=== PATIENT | male | born 1935 | race Caucasian/White ===

== ENCOUNTER 2017-05-27 13:35 | Inpatient (IN) | payer MEDICARE, BC ==
[2017-05-27] VITALS (11 sets, daily range): BP systolic 103–131; BP diastolic 55–84; BMI 25.7
[~2017-05-27 13:35] MED LIST: ALEVE220 MG PO; BAYER CHEWABLE81 MG PO; MIRALAX17 GM PO; OSTEO BI-FLEX1 EAC1 PO; PLAVIX75 MG PO; PRAVACHOL20 MG PO; TENORMIN50 MG PO
[2017-05-27] MEDS ORDERED: HYDROCODON-ACE1 EAC7 PO (14:33)
[2017-05-27] MEDS ORDERED: LEVBID0.375 MG PO (14:35)
[2017-05-27] MEDS ORDERED: TOPROL XL25 MG PO (14:36)
[2017-05-27 16:24] LABS: HEMATOCRIT 50.9 % (42.0-54.0); HEMOGLOBIN 17.1 g/dL (13.5-17.5); MCH 32.1 pg (26.0-34.0); MCHC 33.6 g/dL (31.0-37.0); MCV 95.5 fL (80.0-100.0); MEAN PLATELET VOLUME 10.4 fL (7.4-10.4); RBC 5.33 10x6/uL (4.20-6.10); RDW 13.7 % (11.5-14.5); WBC 14.9 10x3/uL (4.8-10.8)
[2017-05-27 16:38] LABS: INR 1.21 (0.85-1.17); PROTIME 15.1 SECONDS (11.6-15.0)
[2017-05-27 16:43] LABS: APTT 156.5 SECONDS (22.8-39.4)
--- NOTE | 2017-05-27 17:04 | NUR ---
admitted per ambulance from [facility] er. with bilatal pulmonary embolus. heparin gtt infusing at 1000 units an hour. patient awake and alert warm and dry, denies any pain. admits to getting short of breath easier. abd soft with bowel sounds present. monitor sr. states he has no controll of bladder hx of prostate cancer. friendly and talkative. and daughter here. dr. giordano here orders received. 1650 heparin gtt off for 1 hour for PTT of 156 will restart at 700 units an hour
[2017-05-27 17:14] LABS: ANION GAP 15.5 mmol/L (8-16); CALCIUM 9.1 mg/dL (8.5-10.1); CARBON DIOXIDE 25.2 mmol/L (21.0-32.0); CREATININE - SERUM 1.1 mg/dL (0.6-1.3); POTASSIUM - SERUM 5.7 mmol/L (3.5-5.1)
[2017-05-27 17:17] LABS: TROPONIN-I 0.186 ng/mL (0.000-0.060)
--- NOTE | 2017-05-27 18:18 | NUR ---
heparin gtt restarted at 700 units an hour. pull up removed bloody urine noted. patient states that he does that at times. patient does continously dribble urine. no skin breakdown noted. iv patent without redness or swelling. ptt to be done at 2350. ate most of dinner tray
--- NOTE | 2017-05-27 19:30 | NUR ---
REPORT RECVD. CARE ASSUMED. INITIAL ASSMNT COMPLETED. SEE FLOWSHEET FOR ALL FINDINGS. AWAKE AND AOX4. RESP EVEN AND UNLABORED. LUNGS DIM IN BASES. SPO2 96% ON O2 AT 2 LPM NC. SR ON THE MONITOR. PULSES PALP X4. ABD SOFT, BSA X4. OCC INCONTINENCE OF UOP. HEPARIN GTT INFUSING TO PIV NO DIFF. DENIES DISCOMFORT. HOB UP. C/L IN REACH. BED ALARM ON FOR SAFETY. CONT CURRENT POC.
--- NOTE | 2017-05-27 21:00 | NUR ---
HS MEDS GIVEN. FAMILY AT BEDSIDE. UPDATE GIVEN. VSS. DENIES NEEDS. SR ON THE MONITOR. SPO2 96% ON O2 AT 2 LPM NC. HOB UP. BED ALARM ON. CONT CURRENT POC.
--- NOTE | 2017-05-27 23:30 | NUR ---
REASSESSMENT COMPLETED. SEE FLOWSHEET FOR ALL FINDINGS. AWAKE AND AOX4. RESP EVEN AND UNLABORED. LUNGS DIM IN BASES. SPO2 96% ON O2 AT 2 LPM NC. SR ON THE MONITOR. PULSES PALP X4. ABD SOFT, BSA X4. OCC INCONTINENCE OF UOP. HEPARIN GTT INFUSING TO PIV NO DIFF. DENIES DISCOMFORT. HOB UP. C/L IN REACH. BED ALARM ON FOR SAFETY. CONT CURRENT POC.
[2017-05-28] VITALS (25 sets, daily range): BP systolic 100–140; BP diastolic 68–84
--- NOTE | 2017-05-28 01:10 | NUR ---
RESTING WITH NO DISTRESS. RESP UNLABORED. SPO2 96% ON O2 AT 2 LPM NC. DENIES DISCOMFORT. VSS. HOB UP. C/L IN REACH. CONT CURRENT POC.
--- NOTE | 2017-05-28 01:30 | NUR ---
PT IS OOB AND CONFUSED TO WHERE HE IS AT. REORIENTS EASILY. COMPLETE LINEN CHANGE. BRIEFS PUT ON PT. HE STATES THAT HE WEARS THEM AT HOME. URINE IS DARK, BLOODY AND CONCENTRATED. HE ALSO STATES THAT THIS IS NORMAL FOR HIM. PT IS BACK IN BED. BED ALARM ON. SON AT BEDSIDE. PT IS IN SIGHT OF NURSE'S STATION. WILL CONT WITH POC.
--- NOTE | 2017-05-28 05:18 | NUR ---
RESTING WITH NO DISTRESS. VSS. C/O INSOMNIA. C/L IN REACH. BED ALARM ON FOR SAFETY. CONT CURRENT POC.
--- NOTE | 2017-05-28 06:11 | NUR ---
LAB AT BEDSIDE FOR AM LAB. FAMILY AT BEDSIDE. UPDATE GIVEN.
[2017-05-28 06:25] LABS: BASOPHILS 0.3 % (0-2); EOSINOPHILS 1.7 % (0-7); HEMATOCRIT 49.3 % (42.0-54.0); HEMOGLOBIN 16.3 g/dL (13.5-17.5); IMMATURE GRANULOCYTES 0.2 % (0-5); LYMPHOCYTES 16.2 % (15-50); MCH 31.2 pg (26.0-34.0); MCHC 33.1 g/dL (31.0-37.0); MCV 94.4 fL (80.0-100.0); MEAN PLATELET VOLUME 10.5 fL (7.4-10.4); MONOCYTES 12.2 % (2-11); NEUTROPHILS 69.4 % (40-80); PLATELET COUNT 312 10x3/uL (130-400); RBC 5.22 10x6/uL (4.20-6.10); RDW 13.5 % (11.5-14.5); WBC 15.8 10x3/uL (4.8-10.8)
[2017-05-28 06:56] LABS: ANION GAP 15.9 mmol/L (8-16); CALCIUM 9.2 mg/dL (8.5-10.1); CARBON DIOXIDE 24.6 mmol/L (21.0-32.0); CREATININE - SERUM 1.2 mg/dL (0.6-1.3); MAGNESIUM - SERUM 2.2 mg/dL (1.8-2.4); POTASSIUM - SERUM 4.5 mmol/L (3.5-5.1)
--- NOTE | 2017-05-28 14:23 | NUR ---
0700 RECEIVED PT IN BED, AWAKE ALERT NO DISTRESS NOTED, HEPARIN GTT PER PROTOCOL. SEE INITAL ASSESSENT. NO DISTRESS NOTED 1200 PTT CAME BACK GREATER THAN 200, HEPARINF GTT STOPPED AND LAB RE DRAW 1300 LAB RE DRAW 1330 PTT 186.9 WILL FOLLOW HEPARIN GTT PROTOCOL
--- NOTE | 2017-05-28 19:45 | NUR ---
SHIFT ASSESSMENT COMPLETE. PT IS A&O X4 WITH AND SON AT THE BEDSIDE. THEY ARE REQUESTING A REPEAT CT SCAN OF LUNGS. INFORMED THEM THAT I WOULD PASS THAT ON IN REPORT AND TO INFORM THE DOCTOR OF THEIR WISHES WHEN HE ROUNDS WELL. THEY DID NOT HAVE ANY OTHER REQUESTS. RT FOREARM PIV INFUSING HEPARIN. APTT 37.5, GAVE 3000 UN BOLUS AND INCREASED BY 200 UN/HR PER PROTOCOL. S1S2 AUDIBLE, HR 89 BPM NORMAL SINUS RHYTHM. RR SHALLOW, DIMINISHED LUNG SOUNDS THROUGHOUT ALL LOBES. ABD IS FLAT AND SOFT, BS ACTIVE X4. PT IS INCONTINENT OF URINE AND HAS A STEADY DRIBBLE. CLEANED EVANS AREA. SCD'S AT BEDSIDE. RADIAL AND PEDAL PULSES PALP. NO REQUESTS AT THIS TIME. WILL CONT WITH POC.
--- NOTE | 2017-05-28 21:20 | NUR ---
PT'S AT BEDSIDE. NO QUESTIONS AT THIS TIME. SL MEDICATION TAKEN WITH NO ISSUES. NO CHANGES NOTED, VSS. WILL CONT WITH POC.
--- NOTE | 2017-05-28 23:30 | NUR ---
REASSESSMENT COMPLETE AT THIS TIME. PT'S O2 SAT IS 90%. INCREASED OXYGEN TO 3 L/MIN, INCRASED O2 SAT TO 96%. NO FURTHER CHANGES. WILL CONT WITH POC.
[2017-05-29] VITALS (18 sets, daily range): BP systolic 105–153; BP diastolic 45–89
--- NOTE | 2017-05-29 01:30 | NUR ---
PT IS OOB AT AND CONFUSED TO WHERE HE IS. REORIENTS EASILY. COMPLETE LINEN CHANGE. BRIEFS PUT ON PER REQUEST. HE STATES THAT HE WEARS THEM AT HOME. URINE IS DARK, BLOODY AND CONCENTRATED, HE STATES THAT IT IS NORMAL FOR HIM. SON AT BEDSIDE. PT IS BACK IN BED, BED ALARM ON. NO FURTHER CHANGES. WILL CONT TO MONITOR.
[2017-05-29 01:56] LABS: HEMATOCRIT 46.3 % (42.0-54.0); HEMOGLOBIN 15.5 g/dL (13.5-17.5); MCH 31.3 pg (26.0-34.0); MCHC 33.5 g/dL (31.0-37.0); MCV 93.3 fL (80.0-100.0); MEAN PLATELET VOLUME 10.5 fL (7.4-10.4); RBC 4.96 10x6/uL (4.20-6.10); RDW 13.4 % (11.5-14.5); WBC 15.9 10x3/uL (4.8-10.8)
--- NOTE | 2017-05-29 03:30 | NUR ---
REASSESSMENT COMPLETE. PT IS ANXIOUS/WORRIED ABOUT COSTS OF HOSPITAL STAY AND IS BECOMING INCREASINGLY MORE CONFUSED. UNABLE TO REORIENT. PT'S FAMILY AT BEDSIDE TRYING TO COMFORT HIM. THEY DENY ANY REQUESTS AT THIS TIME. BED IN LOWEST POSITION, CALL LIGHT IN REACH, BED ALARM ON. WILL CONT TO MONITOR.
--- NOTE | 2017-05-29 04:27 | NUR ---
PT ANXIOUS/WORRIED AT THIS TIME, CHANCE WISDOM NOTIFIED, NEW ORDERS RECIEVED
[2017-05-29 04:46] LABS: ANION GAP 15.6 mmol/L (8-16); CALCIUM 8.8 mg/dL (8.5-10.1); CARBON DIOXIDE 22.7 mmol/L (21.0-32.0); CREATININE - SERUM 1.2 mg/dL (0.6-1.3); POTASSIUM - SERUM 4.3 mmol/L (3.5-5.1)
--- NOTE | 2017-05-29 05:20 | NUR ---
PT IS RESTING PEACEFULLY AT THIS TIME. VSS. SISTER AT BEDSIDE. WILL CONT WITH POC.
[2017-05-29 08:17] LABS: BASOPHILS 0.3 % (0-2); HEMATOCRIT 44.9 % (42.0-54.0); HEMOGLOBIN 15.4 g/dL (13.5-17.5); IMMATURE GRANULOCYTES 0.3 % (0-5); LYMPHOCYTES 13.9 % (15-50); MCH 32.2 pg (26.0-34.0); MCHC 34.3 g/dL (31.0-37.0); MCV 93.9 fL (80.0-100.0); MEAN PLATELET VOLUME 10.7 fL (7.4-10.4); MONOCYTES 15.5 % (2-11); PLATELET COUNT 317 10x3/uL (130-400); RBC 4.78 10x6/uL (4.20-6.10); RDW 13.4 % (11.5-14.5); WBC 15.6 10x3/uL (4.8-10.8)
--- NOTE | 2017-05-29 09:27 | NUR ---
PATIENT RESTING WELL AWAKES IN CONFUSED STATE RESTLESS WITH HANDS. ALLLOWED TO RETURN TO SLEEP. FAMILY AT BEDSIDE. BILATERAL LUNG SOUNDS CLEAR AND EQUAL, DOES TAKE DEEP BREATHS ON REQUEST. IV RIGHT FOREARM WITHOUT REDNESS OR SWELLING INFUSING WITH HEPARIN AT 800 UNITS AN HOUR. PTT THIS AM 65.8. NO CHANGES NEEDED TO HEAPRIN GTT REPEAT PTT IN AM. DR. MAXWELL HERE. ORDERS RECEIVED. PLAN TO ALLOW PATIENT TO REST MUCH POSSIBLE TO DAY. MONITOR SR. RESP DEEP AND REGULAR.
--- NOTE | 2017-05-29 09:57 | NUR ---
AWAKE AFER EKG, EATING BREAKFAST AT BEDSIDE
--- NOTE | 2017-05-29 11:24 | NUR ---
RESTING WELL. STILL CONFUSED AND PULLING ON GOWN AND LINES WHEN AWAKE. AT BEDSIDE. CALMS DOWN WHEN TALKS TO HIM. ATE GOOD BREAKFAST. 90% OF FOOD. PATIENT STATES HE IS GETTING UP TO EAT. TRAY WARMED AND SERVED.
--- NOTE | 2017-05-29 11:41 | NUR ---
DR. COFFEY HERE TALKED WITH FAMILY QUESTIONS ANSWERED
[2017-05-29 15:07] LABS: APPEARANCE HAZY (CLEAR); BILIRUBIN NEGATIVE (NEGATIVE); COLOR YELLOW (YELLOW); GLUCOSE NEGATIVE (NEGATIVE); KETONE NEGATIVE (NEGATIVE); NITRITE NEGATIVE (NEGATIVE); PROTEIN TRACE mg/dL (NEGATIVE); UROBILINOGEN NORMAL (NORMAL)
[2017-05-29 15:08] LABS: WHITE CELLS - URINE >50 /hpf (0-5)
[2017-05-29 15:09] LABS: BACTERIA FEW /hpf (NONE SEEN)
--- NOTE | 2017-05-29 15:51 | NUR ---
IN AND OUT CATH DONE IN PROPULSION SYSTEMS ENGINEER. PATIENT TOELRATED WELL SPECIMEN OBTAINED AND TAKEN TO LAB. INCONT OF LARGE AMOUNT OF URINE, BATH GIVE LINEN CHANGE. PULL PLACED ON PATIENT. AWAKE AND MORE ALERT. LUNCH TRAY SERVED ATE SMALL AMOUNT. DRINKING COFFEE.
[2017-05-29 15:53] LABS: CKMB 1.4 U/L (0.0-3.6); CREATINE KINASE 111 UL (21-232)
--- NOTE | 2017-05-29 17:24 | NUR ---
REPORT CALLED TO JAMAL, TRANSFER TO ROOM 2216 PER BED. ATE 75% OF DINNER TRAY
[2017-05-29 22:39] LABS: CKMB 1.4 U/L (0.0-3.6); CREATINE KINASE 57 UL (21-232)
[2017-05-29 22:40] LABS: TROPONIN-I 0.114 ng/mL (0.000-0.060)
[2017-05-30] VITALS: BP 129/70
--- NOTE | 2017-05-30 00:49 | NUR ---
PATIENT C/O OF PAINFUL URINATION, URINE OUTPUT AT ABOUT 300 CC WITH A LARGE AMOUNT OF BRIGHT RED BLOOD. I NOTIFIED ROSA GOMEZ AND SHE GAVE ORDERS TO DO A STAT CBC AND CALL HER BACK IF ABNORMAL.
[2017-05-30 00:57] LABS: BASOPHILS 0.4 % (0-2); HEMATOCRIT 45.1 % (42.0-54.0); HEMOGLOBIN 15.2 g/dL (13.5-17.5); IMMATURE GRANULOCYTES 0.4 % (0-5); LYMPHOCYTES 18.6 % (15-50); MCH 32.1 pg (26.0-34.0); MCHC 33.7 g/dL (31.0-37.0); MCV 95.3 fL (80.0-100.0); MEAN PLATELET VOLUME 10.3 fL (7.4-10.4); MONOCYTES 14.4 % (2-11); NEUTROPHILS 62.2 % (40-80); PLATELET COUNT 315 10x3/uL (130-400); RBC 4.73 10x6/uL (4.20-6.10); RDW 13.4 % (11.5-14.5); WBC 13.4 10x3/uL (4.8-10.8)
--- NOTE | 2017-05-30 01:10 | NUR ---
EYES CLOSED RESPIRATIONS WITH EASE AND UNLABORED. SR UP X2 CALL LIGHT WITHIN REACH.
[2017-05-30 01:16] LABS: CKMB 1.2 U/L (0.0-3.6); CREATINE KINASE 62 UL (21-232)
[2017-05-30 01:21] LABS: TROPONIN-I 0.105 ng/mL (0.000-0.060)
[2017-05-30 04:00] VITALS: BP 95/50
[2017-05-30 05:43] LABS: BASOPHILS 0.4 % (0-2); EOSINOPHILS 2.5 % (0-7); HEMATOCRIT 41.3 % (42.0-54.0); HEMOGLOBIN 13.8 g/dL (13.5-17.5); IMMATURE GRANULOCYTES 0.5 % (0-5); LYMPHOCYTES 17.2 % (15-50); MCH 31.4 pg (26.0-34.0); MCHC 33.4 g/dL (31.0-37.0); MCV 94.1 fL (80.0-100.0); MEAN PLATELET VOLUME 10.9 fL (7.4-10.4); MONOCYTES 15.4 % (2-11); PLATELET COUNT 322 10x3/uL (130-400); RBC 4.39 10x6/uL (4.20-6.10); RDW 13.3 % (11.5-14.5); WBC 14.1 10x3/uL (4.8-10.8)
[2017-05-30 05:51] LABS: ANION GAP 13.4 mmol/L (8-16); CALCIUM 8.7 mg/dL (8.5-10.1); CARBON DIOXIDE 24.4 mmol/L (21.0-32.0); CREATININE - SERUM 1.2 mg/dL (0.6-1.3); POTASSIUM - SERUM 3.8 mmol/L (3.5-5.1)
--- NOTE | 2017-05-30 08:11 | NUR ---
AWAKE AND ALERT. ORIENTED X3. LUNGS ARE CLEAR BUT DIMINISHED IN LOWER LOBES. REPORTS NON PRODUCTIVE COUGH. SKIN IS INTACT WITHOUT REDNESS. SL TO LEFT AC IS PATENT WITHOUT REDNESS AT INSERTION SITE. IV TO RIGHT FOREARM IS PATNET WITHOUT REDNESS AT INSERTION SITE. FAMILY AT BEDSIDE. SCD'S OFF AT THIS TIME. DENIES NEEDS.
[2017-05-30 08:30] VITALS: BP 106/62
--- NOTE | 2017-05-30 09:30 | NUR ---
SITTING UP IN BED READING NEWSPAPER. NO C/O. DENIES NEEDS.
[2017-05-30 11:39] VITALS: BP 111/55
[2017-05-30 13:15] LABS: ANA REFLEX - DIRECT Negative (Negative)
[2017-05-30 15:07] VITALS: BP 110/60
--- NOTE | 2017-05-30 16:47 | NUR ---
REQUESTED AND GIVNE ONE HYDROCODONE PO FOR C/O LEFT SHOULDER PAIN LEVEL 7. WILL MONITOR.
--- NOTE | 2017-05-30 17:57 | NUR ---
SITTING UP IN BED EATING SUPPER. NO C/O AT THIS TIME. REPORTS GOOD RELIEF FROM HYDROCODONE. NO CHANGES NOTED.
[2017-05-30 20:00] VITALS: BP 124/68
--- NOTE | 2017-05-30 23:21 | NUR ---
PATIENT IS RESTING WELL IN BED, SPOUSE IS AT BEDSIDE. CALL LIGHT IN REACH.
[2017-05-31] VITALS: BP 147/54
[2017-05-31 04:00] VITALS: BP 128/62
[2017-05-31 05:41] LABS: BASOPHILS 0.4 % (0-2); EOSINOPHILS 5.8 % (0-7); HEMATOCRIT 42.3 % (42.0-54.0); HEMOGLOBIN 14.3 g/dL (13.5-17.5); IMMATURE GRANULOCYTES 0.6 % (0-5); LYMPHOCYTES 17.5 % (15-50); MCH 31.8 pg (26.0-34.0); MCHC 33.8 g/dL (31.0-37.0); MCV 94.2 fL (80.0-100.0); MEAN PLATELET VOLUME 10.4 fL (7.4-10.4); MONOCYTES 14.1 % (2-11); NEUTROPHILS 61.6 % (40-80); PLATELET COUNT 358 10x3/uL (130-400); RBC 4.49 10x6/uL (4.20-6.10); RDW 13.5 % (11.5-14.5); WBC 13.2 10x3/uL (4.8-10.8)
[2017-05-31 06:12] LABS: ANION GAP 13.4 mmol/L (8-16); CALCIUM 8.9 mg/dL (8.5-10.1); CARBON DIOXIDE 25.5 mmol/L (21.0-32.0); CREATININE - SERUM 1.2 mg/dL (0.6-1.3); POTASSIUM - SERUM 3.9 mmol/L (3.5-5.1)
--- NOTE | 2017-05-31 08:06 | NUR ---
AWAKE AND ALERT. ORIENTED X3. NO C/O AT THIS TIME. INCONTINENT OF URINE. SKIN CARE PER STAFF, LINENS CHANGED. REPOSITIONED IN BED FOR COMFORT. LUNGS ARE CLEAR BILATERALLY, NO COUGH NOTED. SKIN IS INTACT WITHOUT REDNESS. SL TO LEFT AC IS PATENT WITHOUT REDNESS, IV TO RIGHT FOREARM IS PATENT WITHOUT REDNESS AT INSERTION SITE. DENIES NEEDS.
[2017-05-31 08:11] VITALS: BP 147/72
--- NOTE | 2017-05-31 10:31 | NUR ---
ATE ALL OF BREAKFAST. FAMILY AT BEDSIDE. DENIES NEEDS.
--- NOTE | 2017-05-31 12:00 | NUR ---
ASSISTED UP TO CHAIR AT BEDSIDE FOR LUNCH. AT BEDSIDE. DENIES NEEDS.
[2017-05-31 12:35] VITALS: BP 138/62
[2017-05-31 13:17] LABS: PROTEIN S - FREE 116 % (57-157); PROTEIN S - FUNCTIONAL 130 % (63-140); PROTEIN S - TOTAL 101 % (60-150)
--- NOTE | 2017-05-31 13:18 | NUR ---
HAD MODERATE BM. SPECIMEN SENT TO LAB. TELEMETRT PLACED ON PATIENT. UP IN CHIAR AT BEDSIDE.
--- NOTE | 2017-05-31 13:46 | NUR ---
Discharge Planning Comments: CM met with patient to assess with discharge planning needs. Patient lives independently with his , where he plans to return home too. His will be the one to drive home at discharge. Patient denies any hh or dme at this time. Patient would like to use HH in [place]. CM will continue to follow and assist with discharge planning needs. PCP: Uziel Bauer Leeanne () [phone] Cabin Equipment Supervisor: Salma Todd
[2017-05-31 17:27] VITALS: BP 148/64
--- NOTE | 2017-05-31 18:39 | NUR ---
RESTING QUIETLY IN BED. ATE MOST OF SUPPER. VERY HAPPY TO HAVE DR. ROSARIO ON HIS CASE, STATED IT MADE HIM COMFORTABLE. NO CHANGES NOTED. DENIES NEEDS.
[2017-05-31 20:00] VITALS: BP 137/63
--- NOTE | 2017-05-31 23:49 | NUR ---
PATIENT IS ALERT, WATCHING TV. SPOUSE AT BEDSIDE, DENIES PAIN OR NEEDS AT THIS TIME. CALL LIGHT IN REACH.
[2017-06-01] VITALS: BP 101/58
[2017-06-01 04:00] VITALS: BP 110/55
[2017-06-01 05:27] LABS: BASOPHILS 0.3 % (0-2); EOSINOPHILS 3.3 % (0-7); HEMATOCRIT 39.6 % (42.0-54.0); HEMOGLOBIN 13.4 g/dL (13.5-17.5); IMMATURE GRANULOCYTES 0.4 % (0-5); LYMPHOCYTES 14.3 % (15-50); MCH 31.7 pg (26.0-34.0); MCHC 33.8 g/dL (31.0-37.0); MCV 93.6 fL (80.0-100.0); MEAN PLATELET VOLUME 9.8 fL (7.4-10.4); MONOCYTES 13.9 % (2-11); NEUTROPHILS 67.8 % (40-80); PLATELET COUNT 397 10x3/uL (130-400); RBC 4.23 10x6/uL (4.20-6.10); RDW 13.5 % (11.5-14.5); WBC 14.6 10x3/uL (4.8-10.8)
[2017-06-01 05:55] LABS: ANION GAP 11.3 mmol/L (8-16); CALCIUM 8.8 mg/dL (8.5-10.1); CARBON DIOXIDE 25.4 mmol/L (21.0-32.0); CREATININE - SERUM 1.3 mg/dL (0.6-1.3); MAGNESIUM - SERUM 2.1 mg/dL (1.8-2.4); POTASSIUM - SERUM 3.7 mmol/L (3.5-5.1)
--- NOTE | 2017-06-01 07:15 | NUR ---
RECIEVED REPORT ON PATIENT, PATIENT IS ALERT AND ORIENTED AT THIS TIME. PATIENT HAS A L FA IV THAT IS SL AT THIS TIME. PATIENT IS SR ON MONITOR WITH A RATE OF 71. PATIENT DENIES ANY NEEDS AT THIS TIME. BED IS LOW AND LOCKED, CALL LIGHT IN REACH. CPOC
[2017-06-01 08:55] VITALS: BP 126/54
--- NOTE | 2017-06-01 09:30 | NUR ---
MORNING MEDICATION GIVEN, ASSESSMENT DONE. DENIES ANY NEEDS. CPOC
[2017-06-01 11:29] VITALS: BP 100/37
--- NOTE | 2017-06-01 12:00 | NUR ---
PATIENT SITTING UP IN BED EATING LUNCH, DENIES ANY NEEDS AT THIS TIME. CPOC
--- NOTE | 2017-06-01 14:30 | NUR ---
PATIENT GETTING IN SHOWER PER VEHICLE BODY BUILDER. CPOC
[2017-06-01 15:34] VITALS: BP 143/69
--- NOTE | 2017-06-01 17:10 | NUR ---
PATIENT IS AMBULATING AROUND ROOM, PATIENT FAMILY CAME TO GET ME STATING THAT PATIENT IS CONFUSED, AND PULLING OFF TELEMETRY. SPOKE WITH PATIENT, TRIED TO REORIENT, PATIENT KEEPS TALKING ABOUT MOTORCYLES AND THEIR PARTS, AND THAT HE NEEDS TO PAY HIS BILL, STATES HE WANTS TO TALK TO WHO IS IN CHARGE, INFORMED PATIENT THAT HE WAS IN THE HOSPITAL, AND TOLD HIM I NEEDED TO PUT HIS MONITOR BACK ON SO I CAN MONITOR HIM, HE STATES UNDERSTANDING, BUT PATIENT STILL KEEPS TALKING ABOUT MOTORCYLCE PARTS AND IS CONFUSED. 0.5MG OF ATIVAN GIVEN IV. WILL MONITOR PATIENT. BED LOW AND LOCKED. CALL LIGHT IN REACH. CPOC
--- NOTE | 2017-06-01 18:21 | NUR ---
PATIENT STILL CONFUSED. RAMBLING WORDS, PATIENT PUT TO BED, BED ALARM ON. WILL CONT TO MONITOR PATIENT. CPOC
--- NOTE | 2017-06-01 19:03 | NUR ---
PT IS UP IN RROM PACING , REFUSED TO STAY IN BED , FIGHTING WITH FAMILY WELL STAFF ABOUT GETTING IN BED, CHECKED EMAR TO SEE IF PT CAN HAVE ANYTHING AND PT WAS JUST GIVEN ATIVAN AT 1700. PAGEJagdish LEE IN REGARDS TO OTHER MEDS THAT MAY WORK
--- NOTE | 2017-06-01 19:21 | NUR ---
PT FAMILY CAME OUT OF ROOM TO SEE IF ANYTHING ELSE CAN BE GIVEN TO PT TO CALM DOWN, EXPLAINED HAD PUT IN A PAGE TO BMET AND JUST WAITING TO HEAR BACK, PT FAMILY WANTED ANOTHER PAGE TO BE PLACED TO ROSA OR DIFFERENT DOCTOR. EXPLAINED THAT PAGE WAS ALREADY DONE AND JUST WAITING BMET BACK
--- NOTE | 2017-06-01 19:30 | NUR ---
RECEIVED CALL BACK FROM TAKE DOWN INSPECTOR. PT ORDERED GEODON FOR AGITATION, WILL ADMINISTER ORDERED DOSE AND CONTINUE TO MONITOR
[2017-06-02] VITALS: BP 103/60
--- NOTE | 2017-06-02 03:30 | NUR ---
PT CONFUSED, RESTLESS AND COMBATIVE. KEEPS TRYING TO CLIMB OUT OF BED. BED ALARM ON. AT BEDSIDE. CONTINUE BRICK KILN WORKER'S PLAN OF CARE.
[2017-06-02 04:00] VITALS: BP 114/69
[2017-06-02 06:08] LABS: BASOPHILS 0.3 % (0-2); EOSINOPHILS 4.2 % (0-7); HEMATOCRIT 41.1 % (42.0-54.0); HEMOGLOBIN 13.8 g/dL (13.5-17.5); IMMATURE GRANULOCYTES 0.3 % (0-5); LYMPHOCYTES 9.1 % (15-50); MCH 31.5 pg (26.0-34.0); MCHC 33.6 g/dL (31.0-37.0); MCV 93.8 fL (80.0-100.0); MEAN PLATELET VOLUME 9.8 fL (7.4-10.4); NEUTROPHILS 74.1 % (40-80); PLATELET COUNT 443 10x3/uL (130-400); RBC 4.38 10x6/uL (4.20-6.10); RDW 13.4 % (11.5-14.5); WBC 15.1 10x3/uL (4.8-10.8)
[2017-06-02 06:34] LABS: ALBUMIN 2.5 g/dL (3.4-5.0); ANION GAP 12.8 mmol/L (8-16); BILIRUBIN - TOTAL 1.11 mg/dL (0.2-1.3); CALCIUM 9.2 mg/dL (8.5-10.1); CREATININE - SERUM 1.4 mg/dL (0.6-1.3); POTASSIUM - SERUM 3.8 mmol/L (3.5-5.1)
--- NOTE | 2017-06-02 07:15 | NUR ---
REPORT RECEIVED FROM BOOK CLEANER NURSE. CALL LIGHT IN REACH.
--- NOTE | 2017-06-02 08:25 | NUR ---
PLEASE CHANGE CXR TO PORTABLE DUE TO THE FACT THE PT IS TOO WEAK TO STAND
--- NOTE | 2017-06-02 09:05 | NUR ---
SON DOES NOT WANT PATIENT TO BE AWAKENED AT THIS TIME.
--- NOTE | 2017-06-02 11:15 | NUR ---
ASSESSMENT COMPLETED. AM MEDS ADMINISTERED. ALARM ON. FAMILY IN ROOM. CALL LIGHT IN REACH. WILL CONTINUE WITH PLAN OF CARE.
[2017-06-02 12:33] VITALS: BP 131/62
--- NOTE | 2017-06-02 13:13 | NUR ---
NUTRITION F/U CHART REVIEWED. SPOKE WITH PORTABLE TRACK LINE MARKER. REPORTS PT FEEDS SELF WITH GOOD PO INTAKE REG DIET. REMAINS ASSESSED AT LOW NUTRITIONAL RISK. RD FOLLOWING
--- NOTE | 2017-06-02 13:55 | NUR ---
AMBULATED IN HALLWAY WITH PT AND RT. O2 WNL.
--- NOTE | 2017-06-02 14:29 | NUR ---
PT AMBULATING ROOM AIR SP02 97%.
--- NOTE | 2017-06-02 14:30 | NUR ---
DENIES ANY NEEDS AT THIS TIME.
--- NOTE | 2017-06-02 15:41 | NUR ---
LEVSIN PO. VOIDED IN URINAL. SPECIMEN SENT TO LAB FOR UA WITH C&S.
[2017-06-02 16:17] VITALS: BP 132/58
[2017-06-02 16:28] LABS: APPEARANCE HAZY (CLEAR); BILIRUBIN NEGATIVE (NEGATIVE); COLOR YELLOW (YELLOW); GLUCOSE NEGATIVE (NEGATIVE); KETONE NEGATIVE (NEGATIVE); NITRITE NEGATIVE (NEGATIVE); PROTEIN TRACE mg/dL (NEGATIVE); UROBILINOGEN NORMAL (NORMAL)
[2017-06-02 16:30] LABS: BACTERIA FEW /hpf (NONE SEEN); RED CELLS - URINE 25-50 /hpf (0-5); WHITE CELLS - URINE 25-50 /hpf (0-5)
--- NOTE | 2017-06-02 17:20 | NUR ---
TALKED TO PATIENT ABOUT IMPORTANCE OF HEART MONITOR. FINALLY ALLOWED ME TO PUT IT BACK ON.
--- NOTE | 2017-06-02 18:56 | NUR ---
NO CHANGES IN INITIAL ASSESSMENT. FAMILY IN ROOM. ALARM ON. CALL LIGHT IN REACH. WILL CONTINUE WITH PLAN OF CARE.
[2017-06-02 20:00] VITALS: BP 119/53
[2017-06-03] VITALS: BP 122/55
[2017-06-03 04:00] VITALS: BP 130/60
[2017-06-03 05:46] LABS: BASOPHILS 0.3 % (0-2); EOSINOPHILS 5.6 % (0-7); HEMATOCRIT 40.2 % (42.0-54.0); HEMOGLOBIN 13.5 g/dL (13.5-17.5); IMMATURE GRANULOCYTES 0.4 % (0-5); LYMPHOCYTES 13.6 % (15-50); MCH 31.5 pg (26.0-34.0); MCHC 33.6 g/dL (31.0-37.0); MCV 93.7 fL (80.0-100.0); MEAN PLATELET VOLUME 9.7 fL (7.4-10.4); MONOCYTES 11.9 % (2-11); NEUTROPHILS 68.2 % (40-80); PLATELET COUNT 488 10x3/uL (130-400); RBC 4.29 10x6/uL (4.20-6.10); RDW 13.2 % (11.5-14.5); WBC 13.8 10x3/uL (4.8-10.8)
[2017-06-03 06:19] LABS: ANION GAP 12.9 mmol/L (8-16); CARBON DIOXIDE 26.1 mmol/L (21.0-32.0); CREATININE - SERUM 1.3 mg/dL (0.6-1.3)
[2017-06-03 07:58] VITALS: BP 136/62
[2017-06-03 08:16] LABS: LUPUS - INTERPRETATION Comment: (()); LUPUS - THROMBIN TIME 15.9 sec (0.0-23.0); LUPUS - dRVVT 76.6 sec (0.0-47.0); PTT-LA 40.3 sec (0.0-51.9)
[2017-06-03] MEDS ORDERED: TESSALON PERLE100 MG PO (12:37)
[2017-06-03] MEDS ORDERED: MUCINEX DM ER1 EAC1 PO (12:37)
[2017-06-03] MEDS ORDERED: FLORAJEN3 CAPS460 MG PO (12:38)
[2017-06-03] MEDS ORDERED: PROTONIX40 MG PO (12:38)
[2017-06-03] MEDS ORDERED: ELIQUIS5 MG PO (12:40)
[2017-06-03] MEDS ORDERED: OMNICEF300 MG PO (12:41)
[2017-06-03 12:43] VITALS: BP 128/61
--- NOTE | 2017-06-03 17:54 | NUR ---
DISCHARGE INSTRUCTIONS WITH PT,STATES UNDERSTANDING.IV DCD WITH CATH INTACT.LEFT UNIT VIA WHEELCHAIR.FAMILY AT SIDE.
--- NOTE | 2017-06-05 11:44 | CN ---
PATIENT NAME:JOSE MONTELONGO MEDICAL RECORD: [id number] : 33 LOCATION:[facility] ADMIT DATE: 05/27/17 ACCOUNT: [id number] CONSULTING PHYSICIAN: LANCE FLETCHER MD REFERRING PHYSICIAN: SHAUNA PHILLIPS MD DATE OF CONSULTATION: 05/27/2017 Pulmonary Consultation CONSULT REQUESTING PHYSICIAN: Shauna Phillips MD REASON FOR CONSULTATION: Bilateral pulmonary embolism, near syncopal episode. HISTORY OF PRESENT ILLNESS: Mr. Montelongo is an 81-year-old gentleman, who this morning has near syncopal episode. He is also having some chest pain. The pain was across his chest. He has shortness of breath. The patient was taken to the [place] ER. He has a CTA and he was diagnosed with bilateral pulmonary embolism. According to the patient, now he is feeling better. He gets shortness of breath with exertion, but he do not feel like passing out. The patient does having history of left DVT in the lower extremity 6 years ago after abdominal surgery. REVIEW OF SYSTEMS: Mainly in the history of present illness. PAST MEDICAL HISTORY: 1. Coronary artery disease. 2. Hypertension. 3. History of myocardial infarction. 4. History of deep venous thrombosis. 5. History of cystitis. 6. Osteoarthritis. PAST SURGICAL HISTORY: 1. He had a cardiac catheterization and stent placement. 2. He has abdominal surgery, laparotomy in 2010. ALLERGIES: There are no known drug allergies. PRESENT MEDICATIONS: [employer] was reviewed. PERSONAL AND SOCIAL HISTORY: The patient is and lives with his . He has very remote history of smoking. He is a nondrinker. FAMILY HISTORY: Noncontributory. PHYSICAL EXAMINATION: GENERAL: Now, the patient is lying comfortably in bed. He is not in acute distress. VITAL SIGNS: The blood pressure is 112/55, pulse is 89, respirations 22, temperature 97.3 and SPO2 is 92% on 2 liter nasal cannula. HEENT: Conjunctivae pink, sclerae nonicteric. NECK: Supple, no JVD. CHEST: Excursion is minimal on both sides. There is no wheeze, no rales. HEART: Rate and rhythm regular. Normal sound. There is a loud P2 component of the second heart sound. ABDOMEN: Soft, bowel sounds present. No hepatosplenomegaly. CONSULT REPORT [id number] JOSE MONTELONGO RECTAL: Deferred. EXTREMITIES: No cyanosis, no clubbing. 1+ pedal edema on the left side. There is no erythema, no calf tenderness. CENTRAL NERVOUS SYSTEM: The patient is awake and alert. There are no obvious cranial nerve abnormality. The gait was not tested. LABORATORY DATA: D-dimer was 3220. The troponin level was 0.2, BUN is 28, creatinine 1.2. Sodium is 143, potassium 4.7. Liver enzymes within normal range. DIAGNOSTIC DATA: The CTA verbal report, bilateral pulmonary embolism. IMPRESSION: 1. Acute hypoxic respiratory failure secondary to #2. 2. Bilateral pulmonary embolism. 3. Near syncopal episode secondary to pulmonary embolism. 4. Dyspnea. 5. Coronary artery disease with elevated cardiac enzymes, troponin 0.2. RECOMMENDATION: 1. We will continue the heparin per protocol. 2. Check the CTA of the chest. Check cardiac echo, check ultrasound of the bilateral lower extremities. Follow up chest x-ray and labs. Continue the home medication. 3. Check factor V Leiden, check PTT, check DEREK, check protein S. The patient is already on heparin. Dr. Phillips, thank you for involving me in the care of Mr. Montelongo. TRANSINT:[id number] Voice Confirmation ID: [id number] DOCUMENT ID: [id number] LANCE FLETCHER MD at 1144 CC: SHAUNA PHILLIPS MD [id number] DICTATION DATE: 05/27/17 1546 ENDBAND CUTTER HAND: 05/27/[id number] DIS IN 06/03/17 [id number] [place] [address]
[2017-06-05 18:10] LABS: FACTOR II DNA ANALYSIS Negative (())
== END 2017-06-03 17:55 | disposition home health service (06) | DRG 175 ==
LOC: D.OPS 13:35 → D.ICU 13:36 → D.MS 13:36
PROVIDERS: Family Medicine; Internal Medicine Cardiovascular Disease; Internal Medicine Hematology & Oncology; Internal Medicine Pulmonary Disease; ADMIT Family Medicine
DX: I26.99 Other pulmonary embolism without acute cor pulmonale (principal); J96.01 Acute respiratory failure with hypoxia; G93.41 Metabolic encephalopathy; I24.8 Other forms of acute ischemic heart disease; I50.22 Chronic systolic (congestive) heart failure; I42.9 Cardiomyopathy, unspecified; J98.11 Atelectasis; R55 Syncope and collapse; Z86.718 Personal history of other venous thrombosis and embolism; Z79.01 Long term (current) use of anticoagulants; I25.2 Old myocardial infarction; I08.3 Combined rheumatic disorders of mitral, aortic and tricuspid valves; I27.20 Pulmonary hypertension, unspecified

== ENCOUNTER 2017-06-14 11:12 | Inpatient (IN) | payer MEDICARE, BC ==
[2017-06-14] VITALS (12 sets, daily range): BP systolic 111–141; BP diastolic 47–92; BMI 28.2
--- NOTE | ~2017-06-14 | HEMODYNAMI ---
PATIENT:JOSE LESTER MEDICAL RECORD: [id number] : 33 [id number] ADMISSION DATE: 06/14/17 Generatedon:06/16/20179:30 Patient name: JOSE LESTER Patient #: [id number] : 1935 Date of study: 06/16/2017 Page: Of Hemodynamic Procedure Report Patient Data Patient Demographics Procedure consent was obtained First Name: JOSE Gender: Male Last Name: TAYLER : 1935 Middle Initial: A Age: 81 year(s) Patient #: [id number] Race: SSN: [id number] Additional ID: [id number] Contact details Address: [address] [place] [address] State: [place] City: [place] Zip code: [address] Past Medical History Allergies: No known allergies Admission Admission Data Admission Date: 06/14/2017 Admission Time: 13:08 Arrival Date: 06/14/2017 Arrival Time: 13:08 Admit Source: Other Insurance Payor: Medicare Room #: D.2121 Weight (lbs.): 150 Weight (kg.): 68.04 Lab Results Lab Result Date: 06/16/2017 Lab Result Time: 0:00 Biochemistry Name Units Result Min Max BUN mg/dl 23 --(----)-* 7 18 Creatinine mg/dl 1.4 --(----)*- 0.6 1.3 CBC Name Units Result Min Max Hemoglobin g/dl 12.1 *-(----)-- 13.5 17.5 Procedure Procedure Types Cath Procedure PCI Procedure Coronary Stent Initial Miscellaneous Procedures Moderate Sedation up to 30 minutes Procedure Description Procedure Date Procedure Date: 06/16/2017 Procedure Start Time: 9:19 Procedure End Time: 9:30 Procedure Staff Name Function Donal Isaacs MD Performing Physician Jim Nassar RN Nurse Maryellen Galvan RT Scrub Jolanta Reynolds RT Monitor Procedure Data Cath Procedure Fluoroscopy Diagnostic fluoroscopy Total fluoroscopy Time: 2.2 time: 2.2 min min Diagnostic fluoroscopy Total fluoroscopy dose: 238 dose: 238 mGy mGy Contrast Material Contrast Material Type Amount (ml) Isovue 300 48 Entry Location Entry Primary Successful Side Size Upsize Upsize Entry Closure Succes sful Closure Location (Fr) 1 (Fr) 2 (Fr) Remarks Device Remarks Femoral Left 6 Fr Exoseal artery Short Estimated blood loss: 5 ml Procedure Complications No complications Procedure Medications Medication Administration Route Dosage 0.9% NaCl I.V. 100 ml/hr Heparin Flush Bag added to field 2 bags (1000units/500ml NS) Lidocaine 2% added to field 20 Heparin Bolus I.V. 4000 units Hemodynamics Rest HGB: 12.1 (g/dl) Heart Rate: 74 (bpm) Snapshots Pre Cath Intra NCS Post Cath Vital Signs Time Heart Resp SPO2 etCO2 NIBP Rhythm Pain Sedation Rate (ipm) (%) (mmHg) (mmHg) Status Level (bpm) 9:04:09 74 16 94 0 121/58(94) NSR 0 (11) 9(A) , No pain 9:08:47 71 22 99 0 121/56(99) NSR 0 (11) 9(A) , No pain 9:13:26 68 19 97 0 112/56(88) NSR 0 (11) 9(A) , No pain 9:18:03 68 19 99 0 119/54(90) NSR 0 (11) 9(A) , No pain 9:22:41 70 16 96 0 121/59(77) NSR 0 (11) 9(A) , No pain 9:27:20 70 17 99 0 130/57(99) NSR 0 (11) 9(A) , No pain Medications Time Medication Route Dose Verified Delivered Reason Notes Effectiveness by by 9:02:24 0.9% NaCl I.V. 100 Jim Jim Per physician ml/hr Maday Nassar RN RN 9:02:49 Heparin Flush added 2 Jim Jim used for Bag to bags Maday Nassar procedure (1000units/500ml field DARYL RN NS) 9:03:13 Lidocaine 2% added 20ml Jim Jim for local to vial Maday Nassar anesthetic field DARYL RN 9:23:04 Heparin Bolus I.V. 4000 Jim Jim for units Maday Nassar anticoagulation RN wedding day coordinator Log Time Note 8:43:11 Informed consent obtained and on chart 8:43:16 Diagnostic Cath Status : Elective 8:43:47 Lab Result : Creatinine 1.4 mg/dl 8:43:47 Lab Result : BUN 23 mg/dl 8:43:47 Lab Result : Hemoglobin 12.1 g/dl 8:43:52 Jim Nassar RN sent for patient. Start room use. 8:43:53 Time tracking: Regular hours 8:43:58 Plan of Care:Hemodynamics will remain stable., Cardiac rhythm will remain stable., Comfort level will be maintained., Respiratory function will remain adequate., Patient/ family verbilizes understanding of procedure., Procedure tolerated without complication., Recovers from procedure without complications.. 9:02:24 0.9% NaCl 100 ml/hr I.V. was administered by Jim Nassar RN; Per physician; 9:02:49 Heparin Flush Bag (1000units/500ml NS) 2 bags added to field was administered by Jim Nassar RN; used for procedure; 9:03:13 Lidocaine 2% 20ml vial added to field was administered by Jim Nassar RN; for local anesthetic; 9:03:17 Vital chart was started 9:04:20 Warm blankets applied, and carlos manuel hugger turned on for patient comfort. 9:04:21 Correct patient and procedure confirmed by team. 9:04:21 ECG and BP/O2 sat monitors applied to patient. 9:04:23 Baseline sample Acquired. 9:04:25 Full Disclosure recording started 9:04:29 H&P Date Dictated: 06/16/2017 Within 30 days and on chart.. 9:04:31 Pre-procedure instructions explained to patient. 9:04:31 Pre-op teaching completed and patient verbalized understanding. 9:04:33 Family in waiting room. 9:04:34 Patient NPO since Midnight. 9:04:50 Is the patient allergic to Iodine/contrast media? No. 9:04:52 Was the patient premedicated? No 9:04:53 Is patient on blood thinner?Yes 9:04:56 ACC The patient was administered the following blood thiners within the last 24 hours: ACCPlavix 9:05:27 Patient diabetic? No. 9:07:53 Previous problem with sedation/anesthesia? No ? 9:07:55 Snore? Yes 9:07:56 Sleep apnea? No 9:07:58 Deviated septum? No 9:07:59 Opens mouth fully? Yes 9:08:00 Sticks out tongue? Yes 9:08:02 Airway obstruction? No ? 9:08:06 Dentures? No ? 9:08:16 Pre procedure: right dorsailis pedis pulse 1+ Palpable, but thready & weak; easily obliterated 9:08:19 Pre procedure: left dorsailis pedis pulse 1+ Palpable, but thready & weak; easily obliterated 9:08:22 Patient pain scale 0/10 ?. 9:08:29 IV patent on arrival in right antecubital with 0.9% NaCl at O. 9:09:14 Lab results completed and on chart. 9:09:18 Right groin area was prepped with chlora-prep and draped in sterile fashion 9::18 Alarms reviewed by R. N. 9::19 Sharps counted by scrub and verified by R.N. 9:09:19 Physician arrived 9:09:20 --------ALL STOP TIME OUT------ 9:09:21 Final Timeout: patient, procedure, and site verified with staff and physician. All members of the team are in agreement. 9:: Right groin site verified by team. 9:09:26 Physical assessment completed. ASA score P 2 - A patient with mild systemic disease as per Donal Isaacs MD. 9:09:29 Sedation plan: IV Moderate Sedation Versed, Fentanyl 9:11:41 Use device set Femoral PCI 9:11:42 Acist Syringe opened to sterile field. 9:11:43 Acist Hand Control opened to sterile field. 9:11:43 Bag Decanter opened to sterile field. 9:11:43 Medline Cath Pack opened to sterile field. 9:11:44 Terumo 6Fr [place] Sheath opened to sterile field. 9:11:44 St Nuno 260cm J .035 wire opened to sterile field. 9:11:45 Merit BasixCompak Inflation Kit opened to sterile field. 9:11:45 Acist Manifold opened to sterile field. 9:11:45 Tegaderm 4 x 4 opened to sterile field. 9:13:09 Patient Weight : 150 lbs 9:13:09 Admit Source: Other 9:13:15 Arrival Date: 06/14/2017 1:08:00 PM 9::22 Insurance Payor : Medicare 9:19:11 Procedure started. 9:19:19 Local anesthetic to left femerol artery with Lidocaine 2% by Donal Isaacs MD.INITIAL ACCESS ONLY 9:19:37 A 6 Fr Short sheath was inserted into the Left Femoral artery 9:20:32 Cordis 6FR XBLAD 3.5 SH guide catheter opened to sterile field. 9:20:43 6 Fr xblad 3.5 guide catheter was inserted over the wire 9:20:48 whisper wire advanced. 9:21:08 Wire advanced across lesion. 9:23:04 Heparin Bolus 4000 units I.V. was administered by Jim Nassar RN; for anticoagulation; 9:25:08 Inflation number: 1 A Euphora 2.0 x 15 Balloon was prepped and advanced across the Mid LAD, then inflated to 13 [place]LAY[place] for 0:10 (min:sec). 9:26:02 Inflation Number: 2 A [place] OTW 2.25 x 18 stent was prepped and advanced across the Mid LAD. The stent was deployed at 15 CLAYTON for 0:10 (min:sec). 9:27:36 Stent catheter was removed intact over wire. 9:27:37 Wire removed. 9:27:37 Guide catheter removed. 9:27:56 Cordis 6Fr Exoseal opened to sterile field. 9:28:09 Sheath removed intact; hemostasis achieved with Exoseal to the Left Femoral artery. 9:28:11 Procedure ended.(Physican Out) 9:28:48 Fluoroscopy time 02.20 minutes. 9:28:53 Fluoroscopy dose: 238 mGy 9:28:53 Flurop Dose total: 238 9:29:07 Contrast amount:Isovue 300 48ml. 9:29:08 Sharps counted by scrub and verified by R.N. 9:29:22 Insertion/operative site no bleeding no hematoma. 9:29:27 Post-op/insertion site Left Femoral artery dressed using a 4 x 4 and Tegaderm. 9:29:31 Post Procedure Pulses reassessed and unchanged 9:29:35 Post procedure rhythm: unchanged. 9:29:38 Estimated blood loss: 5 ml 9:29:39 Post procedure instruction explained to patient.Patient verbalizes understanding. 9:29:40 Patient needs reinforcement of post procedure teaching. 9:29:52 Procedure type changed to Cath procedure, PCI procedure, Coronary Stent Initial, Miscellaneous Procedures, Moderate Sedation up to 30 minutes 9:29:53 Procedure and supply charges have been captured, reviewed, submitted and are correct. 9:29:57 Procedure Complication : No complications 9:30:00 Vital chart was stopped 9:30:01 See physician's report for complete and final results. 9:30:06 Report given to [facility]. 9:30:09 Patient transfered to [facility] with Stretcher. 9:30:11 Procedure ended. 9:30:11 Full Disclosure recording stopped 9:30:17 ACC-PCI Only Patient was given prescriptions, or instructed by Donal Isaacs MD to start/continue the following medications upon discharge: Plavix 9:30:19 End room use (Document Last) Intervention Summary Intervention Notes Time ActionType Lesion and Equipment Action# Pressure Duration Attributes Used 9:25:08 Inflate Mid LAD Euphora 1 13 00:10 balloon 2.0 x 15 Balloon 9:26:02 Place stent Mid LAD [place] OTW 2 15 00:10 2.25 x 18 stent Device Usage Item Name Manufacture Quantity Catalog Hospital Part Current Minimal Lot# / Number Charge Number Stock Stock Serial# Code Acist Acist 1 [id number] [id number] 897684 604324 20 Syringe [employer] Inc Acist Hand Acist 1 83261 289551 315458 439035 5 Control [employer] Inc Bag Microtek 1 2002S 072809 59848 802813 5 [employer] Medline Cardinal 1 [id number] 547231 53592 548494 5 LOFTY Terumo 6Fr Terumo 1 [id number] 915297 771536 234996 [address] N[address] St Nuno 1 932689 379308 047345 780622 30 260cm J .035 wire Merit Merit 1 [id number] 951906 614607 345829 15 BasixCompak Medical Inflation Kit Acist Acist 1 42975 242050 740121 010889 5 [employer] Tegaderm 4 3M 1 1626W 669877 983389 628498 5 x 4 Cordis 6FR Cardinal 1 [id number] 061421 397897 839748 3 XBLAD 3.5 Health guide catheter Euphora 2.0 Medtronic 1 [id number] 943722 456086 396380 5 [id number] x 15 Balloon Guy OTW Medtronic 1 [id number] 382192 66528 848379 5 [id number] 2.25 x 18 stent Cordis 6Fr Cardinal 1 [id number] 095116 870504 726423 10 [facility] [employer] Signature Audit [place] Stage Time Signature Unsigned Intra-Procedure 06/16/2017 Maryellen Galvan 9:30:53 AM RT(R) Signatures Monitor : Jolanta Reynolds Signature : RT Date : Time : [id number] [place] [address]
--- NOTE | ~2017-06-14 | HEMODYNAMI ---
PATIENT:JOSE LESTER MEDICAL RECORD: [id number] : 33 LOCATION:D[facility]# [id number] ADMISSION DATE: 06/14/17 Generatedon:06/14/201713:14 Patient name: JOSE LESTER Patient #: [id number] SSN: : Date of study: 06/14/2017 Page: Of Hemodynamic Procedure Report Patient Data Patient Demographics First Name: JOSE Gender: Male Last Name: TAYLER : 1935 Middle Initial: A Age: 81 year(s) Patient #: [id number] Race: Additional ID: [id number] Contact details [address]: [address] [place] [address] State: [place] City: [place] Zip code: [address] Past Medical History Allergies: No known allergies Admission Admission Data Admission Date: 06/14/2017 Admission Time: 14:30 Procedure Procedure Types Cath Procedure Diagnostic Procedure LHC LHC w/Coronaries PCI Procedure AMI-BMS/BRIJESH Initial PTCA Additional Miscellaneous Procedures Moderate Sedation up to 30 minutes Procedure Description Procedure Date Procedure Date: 06/14/2017 Procedure Start Time: 12:39 Procedure End Time: 13:05 Procedure Staff Name Function Donal Isaacs MD Performing Physician Jolanta Reynolds RT Scrub Richy Siu RN Nurse Maryellen Galvan RT Monitor Procedure Data Cath Procedure Fluoroscopy Diagnostic fluoroscopy Total fluoroscopy Time: 8.9 time: 8.9 min min Diagnostic fluoroscopy Total fluoroscopy dose: dose: 1359 mGy 1359 mGy Contrast Material Contrast Material Type Amount (ml) Isovue 300 130 Entry Location Entry Primary Successful Side Size Upsize Upsize Entry Closure Succes sful Closure Location (Fr) 1 (Fr) 2 (Fr) Remarks Device Remarks Femoral Right 6 Fr Exoseal artery Short Estimated blood loss: 5 ml Procedure Complications No complications Procedure Medications Medication Administration Route Dosage Oxygen NC 2 l/min Heparin Flush Bag added to field 2 bags (1000units/500ml NS) 0.9% NaCl I.V. 100 ml/hr Fentanyl I.V. 50 mcg Versed I.V. 1 mg Integrilin (Bolus I.A. 6.2 ml 2mg/ml) Integrilin (Bolus wasted 3.8 ml 2mg/ml) Integrilin Drip I.V. drip 10.9 ml/hr (75mg/100ml) Fentanyl I.V. 50 mcg Hemodynamics Rest Heart Rate: 83 (bpm) Snapshots Pre Cath Intra NCS Post Cath Vital Signs Time Heart Resp SPO2 etCO2 NIBP (mmHg) Rhythm Pain Sedation Rate (ipm) (%) (mmHg) Status Level (bpm) 12:36:16 93 21 95 0 135/71(106) NSR 0 (11) 10(A) , No pain 12:40:30 80 18 94 0 125/65(89) NSR 0 (11) 10(A) , No pain 12:44:40 78 18 93 0 126/67(92) NSR 0 (11) 9(A) , No pain 12:48:50 79 17 94 0 124/68(104) NSR 0 (11) 9(A) , No pain 12:52:58 80 18 97 0 138/70(110) NSR 0 (11) 9(A) , No pain 12:57:10 81 17 97 0 133/77(120) NSR 0 (11) 9(A) , No pain 13:01:17 83 16 97 0 147/80(118) NSR 0 (11) 9(A) , No pain 13:05:36 84 16 96 0 146/75(122) NSR 0 (11) 9(A) , No pain Medications Time Medication Route Dose Verified Delivered Reason Notes Effectiveness by by 12:35:36 Oxygen NC 2 Donal Lockhart Per physician l/min Ferny Siu RN 12:38:21 Heparin Flush added 2 Donal Lockhart used for Bag to bags Ferny Siu pantograph setter (1000units/500ml field NS) 12:38:34 0.9% NaCl I.V. 100 Donal Lockhart Per physician ml/hr Ferny Siu RN 12:38:42 Fentanyl I.V. 50 Donal Lockhart for sedation mcg Ferny Siu RN 12:38:50 Versed I.V. 1 mg Donal Lockhart for sedation Ferny Siu RN 12:45:38 Integrilin I.A. 6.2 Donal Mansfield for (Bolus 2mg/ml) ml Ferny Isaacs MD anticoagulation 12:46:58 Integrilin wasted 3.8 Donal Lockhart for (Bolus 2mg/ml) ml Ferny Siu RN anticoagulation 12:47:58 Integrilin Drip I.V. 10.9 Donal Lockhart for (75mg/100ml) drip ml/hr Ferny Siu RN anticoagulation continued 12:49:23 Fentanyl I.V. 50 Donal Lockhart for sedation mcg Ferny Siu RN Procedure Log Time Note 12:20:20 Richy Siu RN sent for patient. Start room use. 12:20:30 Emergent patient; consents signed by Dr Isaacs ; patient sedated upon arrival 12:34:51 Diagnostic Cath Status : Elective 12:35:12 Vital chart was started 12:35:28 Time tracking: Regular hours 12:35:32 Plan of Care:Hemodynamics will remain stable., Cardiac rhythm will remain stable., Comfort level will be maintained., Respiratory function will remain adequate., Patient/ family verbilizes understanding of procedure., Procedure tolerated without complication., Recovers from procedure without complications.. 12:35:36 Oxygen 2 l/min NC was administered by Richy Siu RN; Per physician; 12:36:09 Patient received from ED to CCL 2 Alert and oriented. Tansferred to table in Supine position. 12:36:10 Warm blankets applied, and carlos manuel hugger turned on for patient comfort. 12:36:10 Correct patient and procedure confirmed by team. 12:36:12 ECG and BP/O2 sat monitors applied to patient. 12:36:13 Baseline sample Acquired. 12:36:17 Full Disclosure recording started 12:36:22 H&P Date Dictated: 06/14/2017 New H&P dictated by physician.. 12:36:23 Pre-procedure instructions explained to patient. 12:36:23 Pre-op teaching completed and patient verbalized understanding. 12:36:36 Is the patient allergic to Iodine/contrast media? No. 12:36:37 Was the patient premedicated? No 12:37:30 Patient diabetic? Unknown. 12:37:34 Previous problem with sedation/anesthesia? Unknown ? 12:37:36 Snore? Unknown 12:37:37 Sleep apnea? Unknown 12:37:38 Deviated septum? Unknown 12:37:39 Opens mouth fully? Unknown 12:37:41 Sticks out tongue? Unknown 12:37:44 Airway obstruction? Unknown ? 12:37:47 Dentures? Unknown ? 12:37:57 Pre procedure: right dorsailis pedis pulse 1+ Palpable, but thready & weak; easily obliterated 12:38:01 Pre procedure: left dorsailis pedis pulse 1+ Palpable, but thready & weak; easily obliterated 12:38:05 Patient pain scale 0/10 ?. 12:38:11 IV patent on arrival in right antecubital with 0.9% NaCl at [facility] 12:38:19 Right groin area was prepped with chlora-prep and draped in sterile fashion 12:38:20 Alarms reviewed by R. N. 12:38:20 Sharps counted by scrub and verified by R.N. 12:38:21 Heparin Flush Bag (1000units/500ml NS) 2 bags added to field was administered by Richy Siu RN; used for procedure; 12:38:22 Physician arrived 12:38:22 --------ALL STOP TIME OUT------ 12:38:22 Final Timeout: patient, procedure, and site verified with staff and physician. All members of the team are in agreement. 12:38:24 Right groin site verified by team. 12:38:27 Physical assessment completed. ASA score P 2 - A patient with mild systemic disease as per Donal Isaacs MD. 12:38:31 Sedation plan: IV Moderate Sedation Versed, Fentanyl 12:38:34 0.9% NaCl 100 ml/hr I.V. was administered by Richy Siu RN; Per physician; 12:38:42 Fentanyl 50 mcg I.V. was administered by Richy Siu RN; for sedation; 12:38:46 Use device set Femoral PCI 12:38:47 Acist Syringe opened to sterile field. 12:38:48 Acist Hand Control opened to sterile field. 12:38:48 Bag Decanter opened to sterile field. 12:38:49 Medline Cath Pack opened to sterile field. 12:38:49 Terumo 6Fr Uvalde Sheath opened to sterile field. 12:38:49 St Nuno 260cm J .035 wire opened to sterile field. 12:38:50 Versed 1 mg I.V. was administered by Richy Siu RN; for sedation; 12:38:50 Merit BasixCompak Inflation Kit opened to sterile field. 12:38:50 Acist Manifold opened to sterile field. 12:38:50 Tegaderm 4 x 4 opened to sterile field. 12:39:15 Zero performed for pressure channel P1 12:39:20 Procedure started. 12:39:22 Local anesthetic to right femoral artery with Lidocaine 2% by Donal Isaacs MD.INITIAL ACCESS ONLY 12:39:31 A 6 Fr Short sheath was inserted into the Right Femoral artery 12:39:35 Zero performed for pressure channel P1 12:39:47 Diagnostic Infinity 5Fr Multipack catheter opened to sterile field. 12:39:59 5 Fr pigtail guide catheter was inserted over the wire 12:40:32 LV gram done using TAPIA 12:40:34 Injector settings: Ml/sec: 5, Volume: 15, 12:40:40 EF : 50 % 12:40:49 Catheter removed. 12:41:56 5 Fr jl 4 guide catheter was inserted over the wire 12:42:10 LCA angiography performed. 12:42:12 Injector settings: Ml/sec: 3, Volume: 6, 12:43:01 Catheter removed. 12:43:08 5 Fr 3drc guide catheter was inserted over the wire 12:43:21 RCA angiography performed. 12:43:24 Injector settings: Ml/sec: 3, Volume: 6, 12:43:31 Catheter removed. 12:43:44 Proceeding to intervention. 12:44:22 Medtronic Launcher 6Fr Relaxed Mod HS II guide catheter opened to sterile field. 12:44:23 Quiles Whisper J 300cm 0.014 guide wire opened to sterile field. 12:44:43 6 Fr relax mod hs 2 guide catheter was inserted over the wire 12:44:47 whisper wire advanced. 12:44:48 Wire advanced across lesion. 12:45:38 Integrilin (Bolus 2mg/ml) 6.2 ml I.A. was administered by Donal Isaacs MD; for anticoagulation; 12:46:58 Integrilin (Bolus 2mg/ml) 3.8 ml wasted was administered by Richy Siu RN; for anticoagulation; 12:47:58 Integrilin Drip (75mg/100ml) 10.9 ml/hr I.V. drip was administered by Richy Siu RN; for anticoagulation continued; 12:48:17 Inflation number: 1 A Euphora 2.5 x 20 Balloon was prepped and advanced across the Dist RCA, then inflated to 11 CLAYTON for 0:10 (min:sec). 12:48:28 Inflation number: 2 The Euphora 2.5 x 20 Balloon was reinflated across the Dist RCA, to 13 CLAYTON for 0:10 (min:sec). 12:49:23 Fentanyl 50 mcg I.V. was administered by Richy Siu RN; for sedation; 12:49:40 Balloon removed over the wire. 12:52:19 Inflation Number: 3 A Medtronic Integrity 2.5 X 18 stent was prepped and advanced across the Dist RCA. The stent was deployed at 13 CLAYTON for 0:10 (min:sec). 12:52:32 Inflation number: 4 The stent balloon was then re-inflated across the Dist RCA to 15 CLAYTON for 0:10 (min:sec). 12:53:14 Wire removed. 12:53:25 [place] PathJump Choice PT Extra Support J 300cm .014 gu opened to sterile field. 12:54:01 choice pt wire advanced. 12:54:16 Stent catheter was removed intact over wire. 12:54:34 Wire redirected to pdl. 12:55:28 The Euphora 2.5 x 20 Balloon was advanced and then removed because of failure to cross lesion 12:57:11 Inflation number: 1 A Euphora 2.0 x 15 Balloon was prepped and advanced across the R PAV, then inflated to 15 CLAYTON for 0:10 (min:sec). 12:57:19 Inflation number: 2 The Euphora 2.0 x 15 Balloon was reinflated across the R PAV, to 17 CLAYTON for 0:10 (min:sec). 12:57:46 Balloon removed over the wire. 12:59:28 Inflation Number: 1 A Medtronic Integrity 3.0 X 15 stent was prepped and advanced across the Prox RCA. The stent was deployed at 17 CLAYTON for 0:10 (min:sec). 13:00:10 Inflation number: 1 The stent balloon was then re-inflated across the Mid RCA to 17 CLAYTON for 0:10 (min:sec). 13:01:40 Stent catheter was removed intact over wire. 13:01:41 Wire removed. 13:01:41 Guide catheter removed. 13:02:10 Cordis 6Fr Exoseal opened to sterile field. 13:02:23 Sheath removed intact; hemostasis achieved with Exoseal to the Right Femoral artery. 13:02:24 Procedure ended.(Physican Out) 13:03:12 Fluoroscopy time 08.90 minutes. 13:03:20 Fluoroscopy dose: 1359 mGy 13:03:20 Flurop Dose total: 1359 13:03:24 Contrast amount:Isovue 300 130ml. 13:03:56 Sharps counted by scrub and verified by R.N. 13:03:58 Insertion/operative site no bleeding no hematoma. 13:04:00 Post-op/insertion site Right Femoral artery dressed using a 4 x 4 and Tegaderm. 13:04:03 Post right femoral artery:stable 13:04:04 Post Procedure Pulses reassessed and unchanged 13:04:07 Post procedure rhythm: unchanged. 13:04:10 Estimated blood loss: 5 ml 13:04:11 Post procedure instruction explained to patient.Patient verbalizes understanding. 13:04:12 Patient needs reinforcement of post procedure teaching. 13:05:02 Procedure type changed to Cath procedure, Diagnostic procedure, LHC, LHC w/Coronaries, PCI procedure, AMI-BMS/BRIJESH Initial, PTCA Additional, Miscellaneous Procedures, Moderate Sedation up to 30 minutes 13:05:03 Procedure and supply charges have been captured, reviewed, submitted and are correct. 13:05:07 Procedure Complication : No complications 13:05:10 Vital chart was stopped 13:05:10 See physician's report for complete and final results. 13:05:15 Report given to ICU. 13:05:17 Patient transfered to ICU with Stretcher. 13:05:30 Procedure ended. 13:05:30 Full Disclosure recording stopped 13:05:37 ACC-PCI Only Patient was given prescriptions, or instructed by Donal Isaacs MD to start/continue the following medications upon discharge: Plavix 13:05:40 End room use (Document Last) Intervention Summary Intervention Notes Time ActionType Lesion and Equipment Action# Pressure Duration Attributes Used 12:48:17 Inflate Dist RCA Euphora 1 11 00:10 balloon 2.5 x 20 Balloon 12:48:28 Reinflate Dist RCA Euphora 2 13 00:10 balloon 2.5 x 20 Balloon 12:52:19 Place stent Dist RCA Medtronic 3 13 00:10 Integrity 2.5 X 18 stent 12:52:32 Reinflate Dist RCA Medtronic 4 15 00:10 stent Integrity balloon 2.5 X 18 stent 12:55:28 Discard Euphora Balloon 2.5 x 20 Balloon 12:57:11 Inflate R PAV Euphora 1 15 00:10 balloon 2.0 x 15 Balloon 12:57:19 Reinflate R PAV Euphora 2 17 00:10 balloon 2.0 x 15 Balloon 12:59:28 Place stent Prox RCA Medtronic 1 17 00:10 Integrity 3.0 X 15 stent 13:00:10 Reinflate Mid RCA Medtronic 1 17 00:10 stent Integrity balloon 3.0 X 15 stent Device Usage Item Name Manufacture Quantity Catalog Number Hospital Part Current Minim al Lot# / Charge Number Stock Stock Serial# Code Acist Acist 1 [id number] 914087 634063 863955 20 Syringe [employer] Inc Acist Hand Acist 1 70137 339413 369150 907141 5 [facility] [employer] Bag Microtek 1 2002S 551974 62320 108089 5 Hammer[employer] Inc. Medline Cardinal 1 [id number] 228880 03150 997459 5 Cath Pack Health Terumo 6Fr Terumo 1 [id number] 860223 230283 367357 [address] N[address] St Nuno 1 190976 157463 702709 023002 30 260cm J .035 wire Merit Merit 1 [id number] 741435 397041 463048 15 [employer] Medical Inflation Kit Acist Acist 1 60635 242712 010933 877182 5 [employer] Tegaderm 4 3M 1 1626W 228659 116455 813927 5 x 4 Diagnostic Cardinal 1 [id number] 758410 61656 379177 30 Flash Auto Detailingity Health 5Fr Multipack catheter Medtronic Medtronic 1 [id number] 780783 485598 081527 5 Launcher 6Fr Relaxed Mod HS II guide catheter Quiles Quiles 1 [id number] 013944 565368 983236 5 Whisper J Vascular 300cm 0.014 guide wire Euphora 2.5 Medtronic 1 [id number] 036119 379188 406462 5 [id number] x 20 Balloon Medtronic Medtronic 1 [id number] 417452 404227 7 [id number] Integrity 2.5 X 18 stent [place] Sci [place] 1 [id number] 980239 451217 037041 5 Choice PT Scientific Extra Support J 300cm .014 gu Euphora 2.0 Medtronic 1 [id number] 793912 218981 987887 5 [id number] x 15 Balloon Medtronic Medtronic 1 [id number] 429276 281399 2 [id number] Integrity 3.0 X 15 stent Cordis 6Fr Cardinal 1 EX600 556130 000436 631415 10 [facility] Signature Audit [place] Stage Time Signature Unsigned Intra-Procedure 06/14/2017 Maryellen Galvan 1:14:12 PM RT(R) Signatures Monitor : Maryellen Galvan RT Signature : Date : Time : [place] [address] [place] [address]
--- NOTE | 2017-06-14 00:10 | NUR ---
PT C/O OF URGE TO URINATE. TROTTER FLUSHED WITH 20CC URINE. SMALL BLOOD CLOTS NOTED BLOODY NICHOLE URINE NOTED. STATES RELIEF.
[~2017-06-14 11:12] MED LIST changes: +ELIQUIS5 MG PO; +FLORAJEN3 CAPS460 MG PO; +HYDROCODON-ACE1 EAC7 PO; +LEVBID0.375 MG PO; +MUCINEX DM ER1 EAC1 PO; +OMNICEF300 MG PO; +PROTONIX40 MG PO; +TESSALON PERLE100 MG PO; +TOPROL XL25 MG PO
--- NOTE | 2017-06-14 13:42 | NUR ---
PT ARRIVED TO UNIT VIA BED. HOOKED UP TO MONITORING. FAMILY AT BEDSIDE.
--- NOTE | 2017-06-14 14:28 | NUR ---
RAIZA AT BEDSIDE. DAUGHTER HERE WELL. DOUGHNUT ICER IN ROOM AT THIS TIME. PATIENT ALERT AND CONVERANT. DRESSING TO RIGHT GROIN CLEAN, DRY AND INTACT.
[2017-06-14] MEDS ORDERED: FLOMAX0.4 MG PO (14:38)
--- NOTE | 2017-06-14 16:02 | NUR ---
CALLED DR CHRISTINA COTTER FOR PATIENT TO HAVE DIETARY ORDER. STOP INTEGRILIN ONCE DRIP COMPLETE.
--- NOTE | 2017-06-14 16:49 | NUR ---
FAMILY AT BEDSIDE FOR VISITATION. DINNER TRAY PROVIDED. PT HOB RAISED JUST ENOUGH TO KEEP FROM CHOKING. FAMILY ASSISTING WITH MEAL. DRESSING TO RIGHT GROIN STILL CLEAN AND DRY. NO HEMATOMA NOTED. INTEGRILIN DRIP COMPLETE.
--- NOTE | 2017-06-14 17:40 | NUR ---
PT SLEEPING AT THIS TIME. A FEW BITES OF DINNER EATEN. FAMILY AT BEDSIDE.
--- NOTE | 2017-06-14 18:47 | NUR ---
PT STILL HAVING BRIGHT RED BLOOD IN TROTTER CATHETER. CLOTS STARTING TO FORM. FLUSHED 20ML SALINE IN PORT TO REMOVE BUILDUP. WILL CONTINUE TO MONITOR AND FLUSH NEEDED.
--- NOTE | 2017-06-14 19:40 | NUR ---
REPORT RECIEVED. ASSESSMENT COMPLETE PER FLOW SHEET. VSS GIVEN ICE WATER FOR COMFORT DENIES FURTHER NEEDS.WILL CONTINUE TO MONITOR
--- NOTE | 2017-06-14 20:10 | NUR ---
FAMILY AT BEDSIDE. PT C/O OF URGE TO URINATE. TROTTER FLUSHED WITH 20 CC NS SMALL BLOOD CLOTS NOTED BLOODY URINE NOTED STATES RELIEF. GIVEN ICE WATER FOR COMFORT. GAUZE APPLIED TO TROTTER SITE. DENIES FURTHER NEEDS.
--- NOTE | 2017-06-14 21:00 | NUR ---
FAMILY AT BEDSIDE. GIVEN UDPATE. DENIES NEEDS WILL CONTINUE TO MONITOR
--- NOTE | 2017-06-14 23:15 | NUR ---
REASSESSMENT COMPLETE PER FLOW SHEET. VSS NO NEW CHANGES WILL CONTINUE TO MONITOR
[2017-06-15] VITALS (17 sets, daily range): BP systolic 100–144; BP diastolic 49–80; BMI 28.5
--- NOTE | 2017-06-15 01:15 | NUR ---
ASSISTED TO BEDSIDE COMMODE NO BM NOTED. VSS. DENIES NEEDS. NO NEW CHANGES WILL CONTINUE TO MONITOR
--- NOTE | 2017-06-15 03:40 | NUR ---
REASSESSMENT COMPLETE PER FLOW SHEET. VSS. NO NEW CHANGES WILL CONTINUE TO MONITOR
--- NOTE | 2017-06-15 05:20 | NUR ---
FAMILY AT BEDSIDE. PT STATES HE HAS COMPLAINED OF PAIN 3 X'S TO NURSE, EXPLAINED NOT ONCE HAD HE COMPLAINED TO ME ABOUT PAIN THAT I WAS AWARE OF. BUT DID COMPLAIN ABOUT FREQUENCY IN URINATING. DR. VASQUEZ PAGED DR MAXWELL RETURNED CALL T ORDER FOR PRN MORPHINE 2-4 MG Q4H PIV TO BE ADM FOR PAIN PT REFUSES TO TAKE MEDICATION WHEN ASKED WHY STATES R/T CAUSING ADDICTION, EXPLAINED USE OF MEDICATION STILL REFUSES. WILL ADDRESS THIS AM WITH DR VASQUEZ.
--- NOTE | 2017-06-15 07:30 | NUR ---
REPORT RECEIVED. WAS TOLD PATIENT HAD RECENTLY COMPLAINED OF PAIN AND MORPHINE WAS ORDERED BY DR MAXWELL FROM CARDIOLOGY. PT REFUSED -CONCERNED ABOUT ADDICTION/DEPENDENCY. SHIFT ASSESSMENT COMPLETE. PT DENIED PAIN WHEN QUESTIONED DURING SHIFT ASSESSMENT. SAYS HAD SOME EARLIER, BUT NOT NOW. TROTTER CATHETER CHECKED FOR PATENCY. URINE DRAINING PROPERLY. URINE IS CLEAR AND NICHOLE IN COLOR. NO CLOTS NOTED. PT HAS ICE PACK ON PENIS AT THIS TIME. RIGHT GROIN SITE DRESSING IS CLEAN AND DRY. NO HEMATOMA NOTED. NO HARDNESS NOTED AT SITE. PALPABLE PULSES LOWER EXTREMITIES. PT ON ROOM AIR WITH SATURATIONS ABOVE 96%. PT AWAITING BREAKFAST.
--- NOTE | 2017-06-15 08:30 | NUR ---
COMES OUT OF ROOM AND TELLS ANOTHER NURSE HER IS HURTING AND NEEDS PAIN MEDICINE. PRIMARY NURSE IN ANOTHER PATIENT ROOM. SON THEN COMES OUT AND SAYS PT HAS BEEN IN PAIN FOR AN HOUR AND A HALF AND NO PAIN MEDICATIONS HAVE BEEN GIVEN. PRIMARY NURSE WENT TO PATIENT ROOM TO VERIFY PT REQUEST FOR PAIN MEDICATION. QUESTIONED WHY FAMILY SAYING WE HAVEN'T GIVEN PAIN MEDICATION AND THAT PATIENT DENIED PAIN WHEN QUESTIONED EARLIER. PT EXPLAINED HAS HAD PAIN OFF AND ON, AND WAS NOT HURTING EARLIER, BUT IS NOW. PT AND FAMILY ASKED FOR THE MORPHINE TO BE GIVEN. MEDICATION ADMINSTERED PER ORDER.
--- NOTE | 2017-06-15 09:28 | NUR ---
PT DENIES PAIN AT THIS TIME. SAYS EVERY 10 MINUTES OR SO HE WILL HAVE PAIN KIND OF LIKE A SPASM, BUT PAIN IS MUCH BETTER THAN IT WAS EARLIER.
--- NOTE | 2017-06-15 10:45 | NUR ---
PT CALLED OUT FOR NURSE. FOUND TO BE STANDING AT BEDSIDE SAYING HE NEEDED TO TOILET IMMEDIATELY. BEDSIDE COMMODE PROVIDED. PT THE PROCEEDED TO ASK ABOUT EMPTYING TROTTER BAG. DID NOT NEED TO HAVE BOWEL MOVEMENT. SAYS HE FELT LIKE HE NEEDED TO URINATE. TROTTER IS DRAINING PROPERLY. HAD JUST BEEN FLUSHED WITH SALINE WITHIN THE HOUR. HAD PATIENT REMAIN STANDING AND DRAINED TROTTER TUBING WHAT URINE SHOWED. WHILE PATIENT WAS OUT OF BED ALL LINENS CHANGED. NEW GOWN WELL ONCE PATIENT RETURNED TO BED. URINE HAD BEEN CLEAR NICHOLE, NOW SHOWING SOME DARK BLOOD IN TUBING. TUBE DRAINED AGAIN TO MONITOR PATENCY. URINE IS DRAINING. DISCUSSED WITH PATIENT ABOUT USING CALL LIGHT BEOFRE TRYING TO GET UP.
--- NOTE | 2017-06-15 12:08 | NUR ---
SPOKE WITH DR VASQUEZ ABOUT PT CATHETER PAIN. ASKED FOR HYMAN TO BE CONSULTED. PT NORMALLY SEES [facility] ([facility]?) AND HAS AN APPOINTMENT 06/23. ALSO PLANS TO TAKE BACK TO [facility] TOMORROW TO STENT LAD. WILL COME TO SEE PATIENT AND SPEAK WITH FAMILY
--- NOTE | 2017-06-15 13:12 | NUR ---
PT FAMILY PULLED A NURSE AND SAID PT WAS IN A LOT OF PAIN AND NEEDED PAIN MEDICATION. PRIMARY NURSE WENT IN TO ASSESS PATIENT AND ASK ABOUT PAIN. TROTTER CATHETER DRAINING WITH NO INDICATION OF BLOCKAGE. WHEN PATIENT QUESTIONED ABOUT PAIN HE SAYS IT IS A SHARP PAIN THAT LASTS ABOUT 45 SECONDS AND THEN IT LETS UP. WAS NOT IN PAIN AT THE TIME OF CONVERSATION. EXPLAINED IT IS MOST LIKELY SPASMS TO PATIENT AND SON, WHO WAS AT BEDSIDE. LET THEM KNOW THAT A UROLOGY CONSULT HAS BEEN ORDERED. DR HYMAN HAS BEEN NOTIFIED OF CONSULT. SON ALSO ASKED ABOUT CONSULTING DR ROSARIO. SHE HAD DONE BLOOD WORK ON PT A FEW WEEKS AGO AND THEY DON'T KNOW THE RESULTS. THEY ATTEMPTED TO CALL HER OFFICE, BUT WERE TOLD THEY COULDN'T GET ANSWERS UNTIL SHE WAS CONSULTED FOR THIS VISIT. NOT REALLY UNDERSTANDING WHY THEY CANT GET RESULTS FROM PREVIOUS TESTS, BUT TOLD THEM WE COULD DISCUSS WITH DR VASQUEZ IF THERE IS A NEED TO CONSULT HER DURING THIS VISIT.
--- NOTE | 2017-06-15 15:00 | NUR ---
SPOKE WITH DR VASQUEZ. GOT ORDER FOR B&O SUPPOSITORY FOR PT BLADDER SPASMS.
--- NOTE | 2017-06-15 15:29 | NUR ---
B&O SUPPOSITORY ADMINISTERED. PT KEEPS TRYING TO GET UP AND WANDER AROUND HIS ROOM. HAS BEEN GRABBING AT PENIS AND PULLING ON CATHETER.
--- NOTE | 2017-06-15 15:30 | NUR ---
REPORT CALLED TO BRAYAN ON [facility].
--- NOTE | 2017-06-15 16:00 | NUR ---
RECEIVED PT TO ROOM 2120 FROM ICU VIA W/C IN STABLE CONDITION AWAKE AND ALERT ORIENTED TO SELF RESP UNLABORED SKIN W/D COLOR WNL TELEMETRY APPLED SR WITH INVERTED T WAVE RATE 78 F/C PATENT NICHOLE URINE NAD NOTED
--- NOTE | 2017-06-15 23:20 | NUR ---
VERY COMBATATIVE AND ARGUMENTATIVE AT THIS TIME. FAMILY, SECURITY, AND PRIMARY NURSE IN ROOM. DR. ALISSA CAMPOS, AWAITING CALL BACK.
--- NOTE | 2017-06-15 23:44 | NUR ---
PATIENT PULLED OUT THE LEFT HAND IV AND DISCONNECTED TROTTER. I CALLED DR MAXWELL AND GOT AN ORDER FOR HALDOL 2 MG X1 ONLY. SECURITY WAS NOTIFIED DUE TO HIM BECOMING AGGRESSIVE WITH STAFF. FAMILY AND SECURITY AT BEDSIDE AT THIS TIME.
[2017-06-16] VITALS: BP 118/51
--- NOTE | 2017-06-16 03:50 | NUR ---
CONSENTS SIGNED AND PLACED IN CHART. PATIENT IS RESTLESS, UP WALKING AROUND IN ROOM. FAMILY IS AT BEDSIDE. CALL LIGHT IN REACH.
[2017-06-16 04:00] VITALS: BP 123/67
--- NOTE | 2017-06-16 04:45 | NUR ---
PATIENT C/O OF BLADDER SPASMS, BLADDER SCAN DONE AND SHOWS ZERO URINE IN THE BLADDER. BLADDER SPASM MEDICATION GIVEN RECTALLY, PATIENT TOLERATED WELL. CALL LIGHT IN REACH, FAMILY IS AT BEDSIDE.
[2017-06-16 06:40] LABS: BASOPHILS 0.5 % (0-2); EOSINOPHILS 2.7 % (0-7); HEMATOCRIT 37.5 % (42.0-54.0); HEMOGLOBIN 12.1 g/dL (13.5-17.5); IMMATURE GRANULOCYTES 0.3 % (0-5); LYMPHOCYTES 12.4 % (15-50); MCHC 32.3 g/dL (31.0-37.0); MCV 93.1 fL (80.0-100.0); MEAN PLATELET VOLUME 9.5 fL (7.4-10.4); MONOCYTES 11.1 % (2-11); RBC 4.03 10x6/uL (4.20-6.10); RDW 12.8 % (11.5-14.5); WBC 14.6 10x3/uL (4.8-10.8)
[2017-06-16 06:43] LABS: PLATELET COUNT 747 10x3/uL (130-400)
[2017-06-16 06:52] LABS: ANION GAP 13.1 mmol/L (8-16); CALCIUM 8.9 mg/dL (8.5-10.1); CARBON DIOXIDE 24.9 mmol/L (21.0-32.0); CREATININE - SERUM 1.4 mg/dL (0.6-1.3)
--- NOTE | 2017-06-16 07:30 | NUR ---
ASSESSMENT COMPLETED.NPO FOR CATH. PT IS RESTLESS.FAMILY AT BEDSIDE. TELEMERTY SHOWS ST. TROTTER CATH PATENT TO BEDSIDE DRAINAGE BAG. RIGHT AC SL. SR UP WITH CALL LIGHT IN REACH
[2017-06-16 08:22] VITALS: BP 106/58
--- NOTE | 2017-06-16 08:30 | NUR ---
PRE OP ED AND SENT TO CLINICAL PHYSICIAN ASSISTANT PER BED
--- NOTE | 2017-06-16 09:30 | NUR ---
BACK TO ROOM. LEFT GROIN SOFT WITH FEMSTOP IN USE. PPP. V/S STABLE. SR UP WITH CALL LIGHT IN REACH AND FAMILY AT BEDSIDE
--- NOTE | 2017-06-16 12:14 | NUR ---
RESTS IN BED POST ANGEOGRAM. FAMILY AT BS. CALL LIGHT IN REACH. WILL CONT. PLAN OF CARE.
[2017-06-16 12:39] VITALS: BP 153/75
--- NOTE | 2017-06-16 16:56 | OP ---
PATIENT NAME: JOSE LESTER MEDICAL RECORD: [id number] :33 LOCATION:D. D.2121 ADMISSION DATE:06/14/17 SURGEON: NICKIE VASQUEZ MD DATE OF OPERATION: 06/14/2017 PROCEDURES: 1. PTCA stent RCA. 2. Left heart catheterization. 3. Selective coronary angiography. 4. Left ventriculogram. INDICATION: Acute inferior myocardial infarction. DESCRIPTION OF PROCEDURE: After informed consent was obtained and after a detailed explanation of the risks, benefits as well as alternative therapies, the patient elected to proceed with angiogram and angioplasty. The right femoral area was prepped and draped in normal sterile fashion. The right femoral artery was cannulated via modified Seldinger technique with placement of 6-Tajik sheath. All catheters were exchanged through this sheath. FINDINGS: Left ventriculogram was performed in standard 30-degree TAPIA view, reveals inferior hypokinesis, ejection fraction is still preserved at 50%. SELECTIVE CORONARY ANGIOGRAPHY: 1. Left main showed no significant angiographic disease. 2. Left anterior descending has a 99% stenosis in the mid vessel. 3. Left circumflex is widely patent. The previously placed stents are widely patent. 4. The right coronary has previously placed stents proximally. These are patent; however, there is clot with 99% stenosis distally. It appears the 99% stenosis is actually after and out of the stented area. PTCA STENT OF THE RCA. We placed a 2.5 x 18 mm Integrity stent distally. This caused plaque shift into the PLV requiring PTCA with 2.0 balloon. Result was 0% residual stenosis. OVERALL IMPRESSION: Successful percutaneous transluminal coronary angioplasty stent of the right coronary artery going from 99% initial stenosis associated with an acute inferior myocardial infarction to 0% residual stenosis. TRANSINT:[id number] Voice Confirmation ID: [id number] DOCUMENT ID: [id number] NICKIE VASQUEZ MD at 1659 CC: [id number] DICTATION DATE: 06/14/17 1311 WASTE HAND: 06/14/17 1426 ADM IN [facility] [address] [id number]
--- NOTE | 2017-06-16 16:56 | HP ---
PATIENT: JOSE MONTELONGO MEDICAL RECORD: [id number] ACCOUNT: [id number] LOCATION:[address] : 34 ADMISSION DATE: 06/14/17 HISTORY AND PHYSICAL EXAMINATION ADMITTING DIAGNOSES: 1. Acute inferior myocardial infarction. 2. Coronary artery disease. 3. Hematuria. 4. Recent diagnosis of pulmonary embolus. 5. Eliquis anticoagulation. 6. Previous percutaneous transluminal coronary angioplasty stent. HISTORY OF PRESENT ILLNESS: Mr. Montelongo is known to us with previous PTCA stent, last being in September. He presents to [facility] with acute onset of chest pain this morning, was diagnosed with an acute inferior myocardial infarction. He presented to [facility] 2 days ago with urinary retention. He had a Eli catheter placed and said he has had gross hematuria. He is on Eliquis. He was recently diagnosed with pulmonary emboli. He is no longer on aspirin and Plavix. He continues to have the severe chest pain and ST elevation. PHYSICAL EXAMINATION: GENERAL APPEARANCE: Well-nourished, well-developed, appears stated age. Level of distress, comfortable. PSYCHIATRIC: Mental status, alert, normal affect. Orientation, oriented to time, place and person. EYES: Lids and conjunctiva, noninjected. No discharge, no pallor. ENT: Lips, teeth, gums, normal dentition. Oropharynx, no cyanosis, no pallor. NECK: Carotid arteries, bilateral normal upstroke, no bruits, no thrills. JUGULAR VEINS: No jugular venous pressure or distention. CERVICAL LYMPH NODES: Nontender, nonenlarged. THYROID: Not enlarged. Nontender. No nodules. LUNGS: Respiratory effort, unlabored. CHEST: Normal curvature. No thoracic deformity. No chest wall tenderness. Percussion, resonant. Auscultation, clear. No wheezes, no rales, no rhonchi. CARDIOVASCULAR: Precordial exam, nondisplaced. No heaves or pericardial thrills. Rate and rhythm, regular. Heart sounds, normal S1, normal S2. No S3, no gallop, no rub. Systolic murmur, not heard. Diastolic murmur, not heard. EXTREMITIES: No cyanosis, no edema. Peripheral pulses, full and equal in all extremities, except as noted. No bruits appreciated. ABDOMEN: Soft, nondistended. Normal aorta. No bruit. Nontender. No masses. Liver, nontender, no hepatomegaly. Spleen, nontender, no splenomegaly. MUSCULOSKELETAL: No joint tenderness. No joint swelling. No erythema. NEUROLOGICAL: Normal gait, normal strength, normal tone. SKIN: Warm and dry. OVERALL IMPRESSION: ST elevation OH. He is not a candidate for thrombolytics. He was transferred from [place] via helicopter. We will take him immediately to cardiac catheterization for acute opening of the infarct-related vessel. TRANSINT:[id number] Voice Confirmation ID: [id number] DOCUMENT ID: [id number] HISTORY AND PHYSICAL [id number] JOSE MONTELONGO JEFFREY MD at 1656 CC: [id number] DICTATION DATE: 06/14/17 1310 EDUCATIONAL CONSULTANT: 06/14/17 1322 ADM IN [place] [address] [place] [address]
--- NOTE | 2017-06-16 16:56 | OP ---
PATIENT NAME: JOSE LESTER MEDICAL RECORD: [id number] :33 LOCATION:[address] ADMISSION DATE:06/14/17 SURGEON: NICKIE VASQUEZ MD DATE OF OPERATION: 06/16/2017 PROCEDURES: 1. PTCA stent LAD. 2. Selective coronary angiography. INDICATION: Angina and coronary artery disease. PROCEDURE IN DETAIL: After informed consent was obtained and after a detailed explanation of the risks, benefits as well as alternative therapies, the patient elected to proceed with angiogram and angioplasty. The left femoral area is prepped and draped in normal sterile fashion. Left femoral artery was cannulated via modified Seldinger technique with placement of 6-Irish sheath. All catheters exchanged through this sheath. At the end of the case, all catheters removed. Sheaths also removed. FINDINGS: Left anterior descending has a 95% stenosis in the mid vessel. This was addressed with a 2.25 x 18 mm Jewett stent. Result was 0% residual stenosis. OVERALL IMPRESSION: Successful percutaneous transluminal coronary angioplasty stent of the left anterior descending going from 95% initial stenosis to 0% residual. TRANSINT:[id number] Voice Confirmation ID: [id number] DOCUMENT ID: [id number] NICKIE VASQUEZ MD at 1656 CC: [id number] DICTATION DATE: 06/16/17929 NURSING CLERK: 06/16/17 1003 ADM IN [facility] [address] [place] [address]
--- NOTE | 2017-06-16 18:27 | NUR ---
RESTING QUIETLY, FAMILY AT BEDSIDE. NO NEEDS VOICED
[2017-06-16 20:00] VITALS: BP 126/64
--- NOTE | 2017-06-16 21:19 | NUR ---
FAMILY HAS ASKED THAT CASE MANAGEMENT BE CONSULTED FOR THEIR FATHER R/T BEING D/C TOMORROW. THE FAMILY IS IN NEED OF ASSISTANCE WITH PT HE HAS BECOME INCREASINGLY CONFUSED WITH GREAT AGITATION. PT IS CURRENTLY IN BED, AWAKE, ALERT, CONFUSED, BUT CALM AT THIS TIME. WILL CONTINUE TO MONITOR PT CLOSELY.
[2017-06-17] VITALS: BP 127/56
[2017-06-17 04:00] VITALS: BP 126/58
--- NOTE | 2017-06-17 05:43 | NUR ---
PTS SON AND DAUGHTER HAVE REMAINED WITH PT ENTIRE SHIFT. PT HAS BEEN RESTING COMFORTABLY, NO NEEDS. PT HAS NOT BEEN COMBATIVE THIS SHIFT THAT I AM AWARE OF. CONTINUE TO MONITOR CLOSELY.
--- NOTE | 2017-06-17 07:15 | NUR ---
ASSESSMENT DONE. FAMILY AT SIDE. DENIES NEEDS.
[2017-06-17 07:16] VITALS: BP 138/64
--- NOTE | 2017-06-17 09:11 | NUR ---
RESTS IN BED WITH TROTTER PATENT WITH DARK NICHOLE URINE. FAMILY MEMBER AT BS. WILL CONT. PLAN OF CARE.
[2017-06-17 11:04] VITALS: BP 120/59
[2017-06-17] MEDS ORDERED: PRAVASTATIN SOD10 MG PO (11:26)
[2017-06-17] MEDS ORDERED: PLAVIX75 MG PO (11:27)
--- NOTE | 2017-06-17 12:04 | NUR ---
Patient Name: JOSE LESTER Admission Status: Elective Accout number: [id number] Admission Date: 06-14-2017 : 1935 Admission Diagnosis: Attending: BRONSON VASQUEZ Current LOS: 3 Anticipated DC Date: 06-17-2017 Planned Disposition: Home Primary Insurance: MEDICARE A & B Discharge Planning Comments: CM MET WITH THE PATIENT, HIS AND 5 OTHER FAMAILY MEMBERS AT THE BEDSIDE. PATIENT IS ALERT AND ORIENTED TO PLACE AND FAMILY MEMBERS. HE WAS VERY PLEASANT WHEN CM SPOKE WITH HIM. CM HAD RECEIVED A REQUEST FROM THE PRIMARY NURSE, LEESA, TO SPEAK WITH THE FAMILY AT THEIR REQUEST. REVIEWED PATIENT'S MD NOTES FOR NEEDS PRIOR TO SPEAKING WITH THE FAMILY. THE FAMILY DENIED ANY NEEDS. DID NOT FEEL HOME HEALTH WAS NECESSARY AT THIS TIME. CM EXPLAINED HOW H/H CAN BE OBTAINED POST DISCHARGE. EXPLAINED THEY SHOULD CALL PMD'S OFFICE AND H/H CAN BE ORDERED. PCO- [facility]- WHICH CLOSES AT NOON ON MONDAY- WILL USE [facility] ON [facility] TODAY SPOUSE- [place] THE FAMILY WILL PROVIDE TRANSPORTATION TO HOME TODAY. DENIES ANY ADDITIONAL NEEDS AT THIS TIME. CM ADVISED THE CLINICAL Coordinator's is preparing his discharge paperwork. Orthodontist: Gina Logan
--- NOTE | 2017-06-17 12:30 | NUR ---
DC AND RX GIVEN TO FAMILY AND PT
--- NOTE | 2017-06-17 12:39 | NUR ---
DC HOME PER PERSONAL CAR
--- NOTE | 2017-06-20 16:42 | DS ---
PATIENT:JOSE MONTELONGO :33 MEDICAL RECORD: [id number] DISCHARGE SUMMARY ADMISSION DATE: 06/14/17 DISCHARGE DATE: 06/17/17 DISCHARGE DIAGNOSES: 1. Acute inferior myocardial infarction. 2. Coronary artery disease. 3. Percutaneous transluminal coronary angioplasty stent right coronary artery and left anterior descending this admission. 4. Hematuria. 5. History of deep vein thrombosis. HOSPITAL COURSE: Mr. Montelongo presented to [facility] with an acute inferior myocardial infarction. He was air-flighted here, found to have a patent RCA at that time, but significant clot burden. He underwent PTCA stent of the RCA. He had a 95% stenosis of the LAD as well, underwent PTCA stent of the LAD in a staged fashion, his Eliquis is discontinued, is on aspirin and Plavix, stable from a cardiac standpoint, he has hematuria. He has a chronic indwelling Eli, this is being worked up by Dr. Ramos. Secondary to this, his Eliquis was not continued and he will follow up with [facility] in 1 month. TRANSINT:[id number] Voice Confirmation ID: [id number] DOCUMENT ID: [id number] NICKIE VASQUEZ MD at 1642 CC: [id number] DICTATION DATE: 06/17/17 0954 MASSAGE OPERATOR: 06/17/17 1149 DIS IN 06/17/17 [place] [id number] [place] [address]
== END 2017-06-17 12:40 | disposition home or self-care (01) | DRG 247 ==
LOC: D.CLR 11:12 → D.M2 13:08 → D.ICU 13:08 → D.CLR 14:30 → D.MS 14:30 → D.M2 06-15 16:01
PROVIDERS: ADMIT Internal Medicine Interventional Cardiology
PROC: 4A023N7 Measurement of Cardiac Sampling and Pressure, Left Heart, Percutaneous Approach (ICD-10-PCS; 2017-06-14)
PROC: B2111ZZ Fluoroscopy of Multiple Coronary Arteries using Low Osmolar Contrast (ICD-10-PCS; 2017-06-14)
PROC: B2151ZZ Fluoroscopy of Left Heart using Low Osmolar Contrast (ICD-10-PCS; 2017-06-14)
PROC: 02703DZ Dilation of Coronary Artery, One Artery with Intraluminal Device, Percutaneous Approach (ICD-10-PCS; principal; 2017-06-14 14:30)
PROC: 027034Z Dilation of Coronary Artery, One Artery with Drug-eluting Intraluminal Device, Percutaneous Approach (ICD-10-PCS; 2017-06-16)
DX: I21.19 ST elevation (STEMI) myocardial infarction involving other coronary artery of inferior wall (principal); I25.10 Atherosclerotic heart disease of native coronary artery without angina pectoris; I10 Essential (primary) hypertension; I27.20 Pulmonary hypertension, unspecified; R31.9 Hematuria, unspecified; Z79.01 Long term (current) use of anticoagulants; Z86.711 Personal history of pulmonary embolism; Z85.46 Personal history of malignant neoplasm of prostate; N40.0 Benign prostatic hyperplasia without lower urinary tract symptoms; R41.0 Disorientation, unspecified

== ENCOUNTER 2017-06-22 15:47 | Observation (INO) | payer MEDICARE, BC ==
[~2017-06-22 15:47] MED LIST changes: +FLOMAX0.4 MG PO; +PRAVASTATIN SOD10 MG PO
--- NOTE | 2017-06-22 15:53 | NUR ---
TRANSFER FROM [facility] BY EMS. OREINTED TO ROOM. CALL LIGHT IN REACH. WILL CONT. PLAN OF CARE.
[2017-06-22 16:05] VITALS: BP 116/57; BMI 25.1
[2017-06-22] MEDS ORDERED: FLORAJEN3 CAPS460 MG PO (16:14)
[2017-06-22] MEDS ORDERED: LEVSINEX/LEV0.375 M1 PO (16:15)
[2017-06-22] MEDS ORDERED: NITROQUICK0.4 MG SL (16:16)
[2017-06-22] MEDS ORDERED: MUCINEX DM ER1 EAC1 PO (16:16)
[2017-06-22] MEDS ORDERED: TESSALON PERLE100 MG PO (16:17)
[2017-06-22] MEDS ORDERED: PRAVACHOL40 MG PO (16:20)
[2017-06-22] MEDS ORDERED: OXYBUTYNIN CHLOR5 MG PO (18:30)
[2017-06-22] MEDS ORDERED: PHENAZOPYRIDIN100 MG PO (18:31)
[2017-06-22] MEDS ORDERED: CIPRO500 MG PO (18:32)
--- NOTE | 2017-06-22 19:44 | NUR ---
RESUMED CARE OF PT, LYING IN BED RESPIRATIONS EVEN AND UNLABORED ON ROOM AIR. RIGHT AC SALINE LOCKED. 63 SR ON TELEMETRY. FAMILY AT BEDSIDE, CALL LIGHT IN REACH. WILL CONTINUE TO MONITOR. SEE NURSE ASSESSMENT.
[2017-06-22 21:18] VITALS: BP 122/59
[2017-06-23 01:16] VITALS: BP 126/62
[2017-06-23 04:49] VITALS: BP 125/60
--- NOTE | 2017-06-23 05:39 | NUR ---
LYING IN BED WITH CALL LIGHT IN REACH. WILL CONTINUE WITH PLAN OF CARE.
--- NOTE | 2017-06-23 06:42 | NUR ---
NO CHANGES FROM PREVIOUS ASESSMENT.
[2017-06-23 08:00] VITALS: BP 121/54
--- NOTE | 2017-06-23 11:04 | HP ---
PATIENT: JOSE MONTELOGNO MEDICAL RECORD: [id number] ACCOUNT: [id number] LOCATION:[address] : 34 ADMISSION DATE: 06/22/17 HISTORY AND PHYSICAL EXAMINATION DIAGNOSES: 1. Chest pain. 2. Coronary artery disease. 3. Recent 2-vessel PTCA and stent. HISTORY: Mr. Montelongo presents to [facility] with chest discomfort. It is very atypical, although it is worse when he moves his left arm. It is a sharp pain, definitely positional in nature. He is status post recent 2-vessel PTCA and stent. His pain now is totally different than the pain prior to the PTCA and stent. His troponin was mildly elevated; however, this could be explained by the recent 2-vessel PTCA and stent. He just got out of the hospital 2 days ago from that. His EKG is with no acute changes. REVIEW OF SYSTEMS: The patient reports easy bruising but reports no swollen glands. The patient reports no fever, no night sweats, no significant weight gain, no significant weight loss. No significant exercise tolerance. The patient reports no dry eyes, no irritation, no vision change. The patient reports no difficulty hearing and no ear pain. The patient reports no frequent nose bleeds or nose and sinus problems. The patient reports on arm pain on exertion. No shortness of breath while lying down. No history of heart murmur. The patient reports no cough, no wheezing or coughing up blood. The patient reports no abdominal pain, no vomiting. Normal appetite. No diarrhea and not vomiting blood. No nausea and no constipation. The patient reports no incontinence. No difficulty urinating. No hematuria. No increased frequency. The patient reports no muscle aches. No weakness, no arthralgias, no back pain. No swelling of the extremities. The patient reports no abnormal mole, no jaundice, no rashes. Reports no loss of consciousness. No weakness and no numbness. No seizures, dizziness, or headaches. The patient reports no depression, no sleep disturbance, feeling safe in a relationship and no alcohol abuse. The patient reports on fatigue. Reports no runny nose or sinus pressure. No itching, no hives, and no frequent sneezing. PHYSICAL EXAMINATION: GENERAL APPEARANCE: Well-nourished, well-developed, appears stated age. Level of distress, comfortable. PSYCHIATRIC: Mental status, alert, normal affect. Orientation, oriented to time, place and person. EYES: Lids and conjunctiva, noninjected. No discharge, no pallor. ENT: Lips, teeth, gums, normal dentition. Oropharynx, no cyanosis, no pallor. NECK: Carotid arteries, bilateral normal upstroke, no bruits, no thrills. JUGULAR VEINS: No jugular venous pressure or distention. CERVICAL LYMPH NODES: Nontender, nonenlarged. THYROID: Not enlarged. Nontender. No nodules. LUNGS: Respiratory effort, unlabored. CHEST: Normal curvature. No thoracic deformity. No chest wall tenderness. Percussion, resonant. Auscultation, clear. No wheezes, no rales, no rhonchi. CARDIOVASCULAR: Precordial exam, nondisplaced. No heaves or pericardial thrills. Rate and rhythm, regular. Heart sounds, normal S1, normal S2. No S3, no gallop, no rub. Systolic murmur, not heard. Diastolic murmur, not heard. EXTREMITIES: No cyanosis, no edema. Peripheral pulses, full and equal in all HISTORY AND PHYSICAL [id number] JOSE MONTELONGO extremities, except as noted. No bruits appreciated. ABDOMEN: Soft, nondistended. Normal aorta. No bruit. Nontender. No masses. Liver, nontender, no hepatomegaly. Spleen, nontender, no splenomegaly. MUSCULOSKELETAL: No joint tenderness. No joint swelling. No erythema. NEUROLOGICAL: Normal gait, normal strength, normal tone. SKIN: Warm and dry. OVERALL IMPRESSION: Chest pain, most likely musculoskeletal in nature. We will treat as such. Stable from cardiac, do not need to perform repeat cardiac catheterization at this time. TRANSINT:[id number] Voice Confirmation ID: [id number] DOCUMENT ID: [id number] NICKIE VASQUEZ MD at 1104 CC: [id number] DICTATION DATE: 06/22/171549 WORKERS COMPENSATION COORDINATOR: 06/22/17 1640 [facility] IN [place] [address] [place] [address]
--- NOTE | 2017-06-23 11:35 | NUR ---
IV AND TELEMETRY DCD. DC PLANS GIVEN. UNDERSTANDING VOICED. ESCORTED TO CAR BY W/C.
--- NOTE | 2017-07-07 14:14 | DS ---
PATIENT:JOSE MONTELONGO :33 MEDICAL RECORD: [id number] DISCHARGE SUMMARY ADMISSION DATE: 06/22/17 DISCHARGE DATE: 06/23/17 DIAGNOSIS: Noncardiac chest pain. HISTORY AND HOSPITAL COURSE: Mr. Montelongo had a history of 2-vessel PTCA stent last week. He went home. He has had no further anginal pain. He had a musculoskeletal like pain, he was sent here. He responded to Toradol, remained stable from a cardiac standpoint, this is noncardiac chest pain. No other cardiac workup or treatment is necessary. Discharged home with no change in medications. Continue to keep his scheduled followup. TRANSINT:[id number] Voice Confirmation ID: [id number] DOCUMENT ID: [id number] NICKIE VASQUEZ MD at 1414 CC: [id number] DICTATION DATE: 06/23/17 1105 COUNTER INTELLIGENCE: 06/23/17 1227 DIS IN 06/23/17 [place] [id number] [place] [address]
== END 2017-06-23 11:38 | disposition home or self-care (01) ==
LOC: D.M2 15:47 → OBSVTIME 15:47 → D.M2 06-23 11:38
PROVIDERS: ADMIT Internal Medicine Interventional Cardiology
DX: R07.89 Other chest pain (principal); I25.10 Atherosclerotic heart disease of native coronary artery without angina pectoris; Z95.5 Presence of coronary angioplasty implant and graft

== ENCOUNTER → 2017-11-22 14:44 | Outpatient (CLI) | payer MEDICARE, BC ==
[~2017-11-22 14:44] MED LIST changes: +CIPRO500 MG PO; +LEVSINEX/LEV0.375 M1 PO; +NITROQUICK0.4 MG SL; +OXYBUTYNIN CHLOR5 MG PO; +PHENAZOPYRIDIN100 MG PO; +PRAVACHOL40 MG PO
== END | disposition home or self-care (01) ==
LOC: D.LABREF 14:44
DX: R06.00 Dyspnea, unspecified (principal)

== ENCOUNTER → 2018-02-09 08:28 | Outpatient (CLI) | payer MEDICARE, BC ==
--- NOTE | ~2018-02-09 | EC ---
PATIENT:JOSE LESTER DATE OF SERVICE: 02/09/18 SEX: M MEDICAL RECORD: [id number] DATE OF : 33 LOCATION:D.RT AGE OF PATIENT: 82 ADMISSION DATE: 02/09/18 REFERRING PHYSICIAN: INTERPRETING PHYSICIAN: JACKLYN FLEMING MD ECHOCARDIOGRAM REPORT ECHO CHARGES 4 ECHO COMPLETE Date: 02/09 CLINICAL DIAGNOSIS: PULMONARY HTN, HX OF ND / PE ECHOCARDIOGRAPHIC MEASUREMENTS (adult normal given) AC root (d.<3.7cm) 3.8 cm LV Septum d (<1.2 cm> 1.2 cm Valve Excursion 1.8 cm LV Septum (systole) 1.6 cm Left Atria (s.<4.0cm> 3.8 cm LVPW d(<1.2cm) 1.3 cm RV (d.<2.3cm) 3.3 cm LVPW (sytole) 1.7 cm LV diastole(<5.6CM) 5.3 cm MV E-F(>70mm/sec) cm LV systole 3.0 cm LVOT Diameter 1.3 cm MV exc.(>10mm) 2.2 cm Est.ejection fraction (50-75%) % DOPPLER: LVIT cm/sec A 41.0 cm/sec E 100.0 cm/sec LA cm/sec RVSP 58 mmHg LVOT 72 cm/sec AOP1/2T 511 m/s Asc. Ao 296 cm/sec RVOT 63 cm/sec RA cm/sec PA 168 cm/sec AV Gradient Peak 35.15mmHg AV Mean 20.0 mmHg AV Area 1.7 cm MV Gradient Peak 6.68 mmHg MV Mean 2.10 mmHg MV Area cm COMMENTS: [employer] Executive Director: Ly MEANS Shale Planer Operator: Liza Fleming TAPE# PACS Pericardial Effusion N DATE OF SERVICE: 02/09/2018 PROCEDURE: Transthoracic echocardiogram. FINDINGS: 1. The patient has a moderate left ventricular hypertrophy and diastolic dysfunction. 2. The left ventricle shows an ejection fraction of 60% to 65%. 3. Left atrium is mildly dilated. ECHOCARDIOGRAM REPORT [id number] JOSE LESTER 4. Aortic valve is shown to have mild aortic stenosis, peak gradient of 35 mmHg. There is mild aortic insufficiency. In fact, the aortic valve appears to have mostly sclerosis with mild aortic stenosis. 5. The tricuspid valve is normal. RVSP is 50 mmHg. There is mild tricuspid regurgitation. 6. The mitral valve has mild mitral regurgitation. 7. The right ventricle is mildly dilated. 8. The IVC is not well visualized. 9. Pulmonic valve is normal. CONCLUSIONS: The patient has evidence of mild hypertensive heart disease with mild aortic regurgitation, mild aortic stenosis. TRANSINT:[id number] Voice Confirmation ID: [id number] DOCUMENT ID: [id number] JACKLYN FLEMING MD at 0927 CC: [id number] DICTATION DATE: 02/11/18 1030 GLOBE CLEANER: 02/11/18 1106 DEP CLI 02/09/[address] [facility] [address] [place] [address]
== END | disposition home or self-care (01) ==
LOC: D.RT 08:28
DX: R93.8 Abnormal findings on diagnostic imaging of other specified body structures (principal)